=== PATIENT | male | born 1940 | race Caucasian/White ===

== ENCOUNTER 2020-07-01 14:53 | Outpatient (CLI) | payer MEDICARE ==
[2020-07-01 16:09] LABS: Hemoglobin 14.9 g/dL (14.0-18.0); Mean Corpuscular HGB CONC 33.6 G/DL (32.0-36.0); Mean Corpuscular Hemoglobin 32.3 PG (27.0-33.0); Mean Corpuscular Volume 96.1 fl (80.0-100.0); Mean Platelet Volume 8.2 fl (7.4-10.4); Platelet Count 714 10x3/uL (130-400); RBC Distribution Width 12.3 % (11.5-14.5); Red Blood Cell (RBC) Count 4.61 10x6/uL (4.40-5.80); White Blood Cell (WBC) Count 7.1 10x3/uL (4.5-11.0)
[2020-07-01 16:12] LABS: Anion Gap 14 mmol/L (10-20); BUN (Urea Nitrogen) 14 mg/dL (8.4-25.7); Calc. Creatinine Clearance 0 mL/min (70-130); Calcium 9.6 mg/dL (7.8-10.44); Carbon Dioxide 27 mmol/L (23-31); Chloride 102 mmol/L (98-107); Estimated GFR-MDRD 75; Glucose 112 mg/dL (83-110); Sodium 139 mmol/L (136-145)
[2020-07-01 16:22] LABS: PTT 25.1 sec (22.0-33.0); Prothrombin Time 10.7 sec (9.5-12.1)
[2020-07-01 16:29] LABS: Bilirubin Neg (Negative); Blood, Urine 250 (Negative); Glucose, Urine (Dipstick) Normal (Negative); Ketone, Urine 5 mg/dL (Negative); Leukocyte 25 (Negative); Nitrite Negative (Negative); Protein, Urine (Dipstick) 30 mg/dl (Neg-Trace); Specific Gravity, Urine 1.015 (1.002-1.036); Urobilinogen Normal mg/dL (Less than 2)
[2020-07-01 16:37] LABS: RBC/HPF Greater than 50 HPF (0-3)
[2020-07-01 16:38] LABS: Bacteria/HPF Rare-Few HPF (None Seen); Squamous Epithelial 0-3 HPF (0-3)
[2020-07-01 16:39] LABS: Mucous/LPF Rare LPF (<2+)
[2020-07-02 09:33] LABS: SARS-CoV-2 MS2 Positive; SARS-CoV-2 N Gene Negative; SARS-CoV-2 S Gene Negative; SARS-CoV-2 by NAA Not Detected (NotDetected); SARS-CoV-2 orf1ab Negative
== END 2020-07-01 14:54 | disposition home or self-care (01) ==
LOC: LABBT 14:53
PROVIDERS: ATTEND Urology
DX: Z01.818 Encounter for other preprocedural examination (principal); Z20.828 Contact with and (suspected) exposure to other viral communicable diseases; C68.9 Malignant neoplasm of urinary organ, unspecified; N40.1 Benign prostatic hyperplasia with lower urinary tract symptoms; R39.12 Poor urinary stream; R39.15 Urgency of urination; R68.89 Other general symptoms and signs
CPT/HCPCS: 80048; 81001; 85027; 85610; 85730; 87086; U0003; 87635; 93005; 93010

== ENCOUNTER 2020-07-03 11:58 | Observation (INO) | payer MEDICARE ==
[2020-07-03] MEDS ORDERED: Ondansetron PF 4 MG/2 ML Vial ONE (12:47)
[2020-07-03] MEDS ORDERED: Lidocaine 1% PF 5 ML VIAL ONE (12:47)
[2020-07-03] MEDS ORDERED: PROPOFOL 200 MG/20 ML VIAL ONE (12:47)
[2020-07-03] MEDS ORDERED: Dexamethasone 20 MG/5 ML VIAL ONE (12:47)
[2020-07-03] MEDS ORDERED: Levofloxacin 500 mg/D5W 100 ml Premix Bag ONE (14:00)
[2020-07-03] MEDS ORDERED: Fentanyl 100 MCG/2 ML VIAL ONE ×3 (14:42→17:35)
[2020-07-03] MEDS ORDERED: mitoMYcin 40 MG in Sterile Water 20 ML IV SCH (15:00)
[2020-07-03] MEDS ORDERED: B & O ONE (15:19)
[2020-07-03] MEDS ORDERED: Promethazine HCl 25 MG/ML VIAL IM PRN (16:00)
[2020-07-03] MEDS ORDERED: Ondansetron HCl/PF 4 MG/2 ML Vial IVP PRN (16:00)
[2020-07-03] MEDS ORDERED: Promethazine HCl 25 MG/ML VIAL SLOW IVP PRN (16:00)
[2020-07-03] MEDS ORDERED: Morphine 2 MG/ML VIAL SLOW IVP PRN (16:41)
[2020-07-03] MEDS ORDERED: Bisacodyl 10 MG SUPP PR PRN (16:41)
[2020-07-03] MEDS ORDERED: Phenazopyridine HCl 97.5 MG TABLET PO PRN (16:41)
[2020-07-03] MEDS ORDERED: hydrALAZINE 20 MG/ML VIAL SLOW IVP PRN (16:41)
[2020-07-03] MEDS ORDERED: Ondansetron PF 4 MG/2 ML Vial IVP PRN (16:41)
[2020-07-03] MEDS ORDERED: diphenhydrAMINE 25 MG CAP PO PRN (16:41)
[2020-07-03] MEDS ORDERED: Mag-Al 1200 mg/1200 mg/30 ML UDCUP PO PRN (16:41)
[2020-07-03] MEDS ORDERED: Acetaminophen 500 MG TAB PO PRN (16:41)
[2020-07-03] MEDS: traMADol HCl 50 MG TAB PO PRN (18:55)
--- NOTE | 2020-07-03 19:32 | OP ---
DATE OF PROCEDURE: 07/03/2020 SERVICE: Urology. PREOPERATIVE DIAGNOSES: 1. Bladder outlet obstruction with bladder tumor. 2. 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 POSTOPERATIVE DIAGNOSES: 1. Bladder tumor with bladder outlet obstruction. 2. Prostatic urethral tumor. PROCEDURES PERFORMED: 1. Transurethral resection of bladder tumor between 2 to 5 cm. 2. Transurethral resection of the prostate. 3. Instillation of mitomycin-C intravesically. INDICATIONS FOR PROCEDURE: Mr. Garcia is a 80-year-old white male who initially presented to me for significant urinary complaints. He had no history of hematuria and his prostate was extremely irregular. His PSA was normal, but on cystoscopy, he was found to have a bladder tumor as well as what looked like papillary tumor within the prostatic urethra. I recommended a TURP as well as resection of the bladder tumors with risks and benefits discussed with postoperative mitomycin-C. He agreed to proceed forward. DESCRIPTION OF PROCEDURE: After identification of armband and verification of consent, the patient was brought back to the operating room where he underwent general anesthesia with an LMA. He was placed in dorsal lithotomy position and prepped and draped in usual sterile fashion. After appropriate time-out, a 26-Wallisian resectoscope sheath with visual obturator was attempted to pass through the urethra. The meatus was somewhat narrow, so this was dilated with Khris sounds up to 28-Wallisian. This allowed for easier passage through the meatus using the resectoscope with visual obturator. Passage was done into the bladder and the bladder and prostatic urethra were consistent with what had been identified on outpatient cystoscopy. Of note, there were additional tumors noted within the bladder, which were missed on the outpatient cystoscopy. There was a tumor just posterior to the center of the trigone as well as a secondary smaller tumor just cephalad to the left ureteral orifice. The visual obturator was then switched out for the bipolar bladder loop with the bipolar plasma settings using the cutting current. The tumor on the center behind the trigone was resected initially and then cauterized. The tumor behind the left ureteral orifice was also resected and cauterized, taking care not to injure the left ureteral orifice. The largest tumor measuring approximately 3 cm was resected off the right side near the bladder neck until it was flushed with the remaining bladder. Some deeper swipes were taken into the detrusor muscle to ensure for adequate pathology and staging. At this point, cautery was performed in all locations and then the bladder tumor chips were evacuated and sent separately for pathologic evaluation. Attention was then turned to the prostate where transurethral resection of prostate was carried out from the bladder neck to the verumontanum circumferentially to create a wide-open passage. Bladder neck relaxing incisions were done at 5 and 7 o'clock to make the prostatic channel wider. Resection was carried up to the verumontanum and gentle resection was performed just lateral to the verumontanum on either side to remove the papillary frondular tumor, which was located in this location. Great care was taken to try and avoid urethral sphincteric injury. Cautery was then performed circumferentially until all bleeding spots had been stopped. The prostate did appear irregular on resection. Upon completion, the prostatic chips were evacuated with a combination of the Hydrobee evacuator as well as the resectoscope sheath. Final inspection of the bladder did not demonstrate any bleeding from the resection sites and both ureters were in the orthotopic location unharmed. The resectoscope was then completely removed and a 22-Wallisian 3-way Palm catheter was placed into the patient's bladder. The CBI tubing was connected, but once the bladder was drained, the CBI was kept off. 40 mg of mitomycin-C and 20 mL of water were instilled retrograde through the catheter into the bladder and a catheter plug placed. This was used to treat the patient's bladder cancer. The patient had B and O suppository placed, was then taken out of positioning, awakened, taken to PACU for recovery in stable condition. COMPLICATIONS: None. ESTIMATED BLOOD LOSS: Minimal. RETAINED TUBES AND DRAINS: 22-Wallisian 3-way Palm catheter, currently off CBI and plugged once his mitomycin-C has been in for 1 hour. We will drain the chemotherapy out, initiate CBI and keep his catheter to gravity drainage. SPECIMENS: Bladder tumor as well as prostatic tumor chips, sent separately. DISPOSITION: The patient will be kept in the hospital overnight. We will plan a discharge in the morning pending a void trial. Job ID: [id number]
[2020-07-03] MEDS: Docusate 100 MG CAP PO SCH (21:19)
[2020-07-03] MEDS: Trospium 20 MG TAB PO SCH (21:20)
[2020-07-04 00:29] VITALS: BMI 23.8
[2020-07-04 06:47] LABS: #Lymphocytes 0.9 thou/uL (1.20-3.40); #Monocytes 1.5 thou/uL (0.11-0.59); #Neutrophils 11.2 thou/uL (1.40-6.50); %Basophils 0.3 % (0.0-1.0); %Eosinophils 0.1 % (0.0-10.0); %Lymphocytes 6.7 % (21.0-51.0); Hemoglobin 13.5 g/dL (14.0-18.0); Mean Corpuscular HGB CONC 33.4 g/dL (32.0-36.0); Mean Corpuscular Hemoglobin 32.9 pg (27.0-31.0); Mean Corpuscular Volume 98.6 fL (78.0-98.0); Mean Platelet Volume 5.6 fL (7.4-10.4); Platelet Count 688 thou/uL (130-400); RBC Distribution Width 11.5 % (11.5-14.5); Red Blood Cell (RBC) Count 4.12 mill/uL (4.70-6.10); White Blood Cell (WBC) Count 13.7 thou/uL (4.8-10.8)
[2020-07-04 07:08] LABS: Anion Gap 12 mmol/L (10-20); BUN (Urea Nitrogen) 11 mg/dL (8.4-25.7); Calc. Creatinine Clearance 60 mL/min (70-130); Calcium 8.5 mg/dL (7.8-10.44); Carbon Dioxide 25 mmol/L (23-31); Chloride 102 mmol/L (98-107); Estimated GFR-MDRD 71; Glucose 119 mg/dL (83-110); Potassium 3.7 mmol/L (3.5-5.1); Sodium 135 mmol/L (136-145)
[2020-07-04] MEDS: Amlodipine 10 MG TAB PO SCH (09:11)
[2020-07-04] MEDS: Docusate 100 MG CAP PO SCH ×3 (09:11→20:20)
--- NOTE | 2020-07-04 10:34 | CT ---
CT chest with IV contrast CT abdomen and pelvis with IV and oral contrast HISTORY: Urinary bladder cancer. Initial staging. FINDINGS: Calcified granulomata throughout the chest and abdomen are consistent with healed granuloma tous disease. There is calcification throughout the arterial structures. At least 6 lobular low-density masses are present throughout the liver, measuring up to 2.2 cm the ce ntral aspect of the left liver lobe. A 1.7 cm cyst is present at the anterior cortex of the right kidney. At the anterior aspect of the dominguez perior pole left kidney is a 1.3 cm oval cystic lesion with a small hyperdense focus at the periphery. Mild dilatation of the left renal collecting system and moderate dilatation of the tortuou s left ureter to the distal ureter which is slightly hyperdense. Urinary bladder is decompressed with circumferential wall thickening and mild stranding in the adjacent fat. A 0.8 cm lipoma is noted within the second portion of the duodenum. There is subtle fat stranding within the left lower posterior retroperitoneum. Oval heterogeneous sof t tissue density masses with the appearance of enlarged lymph nodes in the left pelvis include internal iliac lymph nodes that are 3.3 and 2.7 cm greatest diameter and an oval external iliac chain node that is 5.3 cm x 3.1 cm greatest diameters. 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 Abnormal appearance of the bladder likely represents the historically stated bladder cancer. There is partial obstruction of the distal left ureter at the left UVJ. Mild to moderate left hydroureteronephrosis. Possible involvement of the lower left ureter given the hyperdense appearance. Complex cystic lesion at the superior pole left kidney 1.3 cm. Please consider short-term follow-up d edicated CT kidneys, without and with IV contrast, for better characterization. Atherosclerosis.
--- NOTE | 2020-07-04 11:02 | PRG ---
DATE OF SERVICE: 07/04/2020 SUBJECTIVE: The patient states he is doing okay. He has had some bladder spasms and mild irritation, but no severe pain. No fevers, chills, shortness of breath, or chest pain. OBJECTIVE: VITAL SIGNS: Temperature 97.7, pulse 78, respirations 16, blood pressure 172/78, and saturation 92% on room air. GENERAL: No apparent distress. Communicative and alert. CARDIOVASCULAR: Regular rate and rhythm. ABDOMEN: Soft, nontender, and nondistended. Positive bowel sounds. : Palm catheter in place with blood-tinged urine. EXTREMITIES: No edema. LABORATORY EVALUATION: The full set of labs are in the [employer] system, which I have reviewed. Of note, the patient's white count is 13.7 and hemoglobin 13.5. Creatinine of 1.02. 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 His urine looks clear enough that I think we can take out his catheter. We will perform a void trial and ensure that he is able to void and his urine is not excessively bloody. He is planned to get his imaging today with a CT of the chest, abdomen, and pelvis for staging for metastatic disease as well as a bone scan. Once these are completed, if he is able to void adequately without significant hematuria problems, I think he can be discharged home with followup on an outpatient basis. I have gone over all the patient's discharge instructions as well as postoperative instructions. Job ID: [id number]
[2020-07-04] MEDS: Trospium 20 MG TAB PO SCH ×2 (11:23→20:20)
--- NOTE | 2020-07-04 13:20 | DIS ---
DATE OF ADMISSION: 07/03/2020 DATE OF DISCHARGE: 07/05/2020 ADMITTING DIAGNOSIS: Bladder outlet obstruction with urothelial carcinoma. DISCHARGE DIAGNOSIS: Bladder outlet obstruction with urothelial carcinoma. PROCEDURE PERFORMED: Transurethral resection of bladder tumor with transurethral resection of the prostate and instillation of mitomycin-C postoperatively. BRIEF HISTORY: Mr. Garcia is a 80-year-old white male with severe urinary symptoms. He has a significantly abnormal JAMIE with normal PSA of 3. We had elected to perform a TURP, but during cysto was noted to have multiple bladder tumors as well as what looked like cancer within the prostatic urethra. I recommend resection of these areas including the prostate to help with urinary symptoms and staging. He did wish to proceed forward and the full H and P can be found in the scanned portion of the [employer]. HOSPITAL COURSE: After surgery (please see operative note for details), the patient was kept in the hospital overnight with CBI. He had imaging order for a CT of the chest, abdomen, and pelvis with contrast as well as a bone scan. These demonstrated that he had a hepatic metastasis with pelvic lymphadenopathy. He also was noted to have right hydronephrosis with mild left hydronephrosis. It is unclear how long he has had this. His catheter was removed postop day 1. He did have CBI overnight, but this was stopped in the morning and his urine was not very bloody. The patient was not able to void and after 6 hours we had to have his catheter replaced. We kept him another night until postoperative day 2. We obtained a new BMP due to the discovery of his hydronephrosis which showed that his GFR was even better at 86. He was discharged home with a Palm catheter since he didn't want to do another void trial right now and his followup will be handled on outpatient basis. DISPOSITION: Discharge to home. DISCHARGE CONDITION: Good. DISCHARGE MEDICATIONS: The patient may resume all of his home medications. In addition, he will be given prescriptions for trospium, tramadol, Pyridium, and Colace. FOLLOW UP: Will be in approximately 1 to 2 weeks for a postop check with a BMP and renal ultrasound and next week for void trial as a nurse visit in office. Job ID: [id number] [facility]
--- NOTE | 2020-07-04 13:28 | NM ---
Radionucleotide bone scan HISTORY: Transitional cell carcinoma of the bladder. FINDINGS: Heterogeneous uptake at the knees and shoulders consistent with degenerative changes. Linea r uptake over the right forearm correlates with IV tubing. Patient was unable to empty bladder. Persistent bladder uptake obscures the sacrum. Uptake is present within a dilated right renal collecting system and tortuous right ureter. IMPRESSION : No evidence of metastatic disease. Right hydroureteronephrosis.
[2020-07-04] MEDS ORDERED: Iopamidol-370 76% 500 ML 1 ML ONE (15:31)
[2020-07-04] MEDS: traMADol HCl 50 MG TAB PO PRN (18:24)
[2020-07-05] MEDS: traMADol HCl 50 MG TAB PO PRN (00:17)
[2020-07-05] MEDS: Trospium 20 MG TAB PO SCH (09:44)
[2020-07-05] MEDS: Docusate 100 MG CAP PO SCH (09:44)
[2020-07-05] MEDS: Amlodipine 10 MG TAB PO SCH (09:44)
[2020-07-05 13:46] LABS: Anion Gap 11 mmol/L (10-20); BUN (Urea Nitrogen) 12 mg/dL (8.4-25.7); Calc. Creatinine Clearance 71 mL/min (70-130); Calcium 9.1 mg/dL (7.8-10.44); Carbon Dioxide 29 mmol/L (23-31); Chloride 99 mmol/L (98-107); Estimated GFR-MDRD 86; Glucose 84 mg/dL (83-110); Potassium 4.2 mmol/L (3.5-5.1); Sodium 135 mmol/L (136-145)
--- NOTE | 2020-07-05 14:16 | PRG ---
DATE OF SERVICE: 07/05/2020 SUBJECTIVE: The patient failed his void trial yesterday. He was not able to urinate. The catheter was replaced with approximately 400 mL of clear yellow urine released. He is complaining of a little bit of flank discomfort and lower abdominal pain, more so on the right. He underwent his imaging yesterday, which demonstrated right-sided moderate hydronephrosis and left mild hydronephrosis. The bone scan was negative, but the CT did demonstrate possible metastatic disease within the liver and lymph nodes. Pathology is still pending on this patient. He is not complaining of any significant bladder spasms or bladder pain at the current time and feels relatively good otherwise. OBJECTIVE: VITAL SIGNS: Temperature 98.3, pulse 63, respirations 18, blood pressure 154/80, saturation 91% on room air. GENERAL: No apparent distress. Communicative and alert. CARDIOVASCULAR: Regular rate and rhythm. ABDOMEN: Soft, nontender, and nondistended. GENITOURINARY: Palm catheter in place, draining slightly orange-colored urine. EXTREMITIES: Trace edema. LABORATORY EVALUATION: The full set of labs are in the [facility] system, which I have reviewed. Of note, the patient's creatinine is 0.86, which is improved from yesterday. ASSESSMENT AND PLAN: A 80-year-old white male with uncharacterized malignancy within the bladder and prostate. It is unclear if this is a separate urothelial carcinoma with prostate adenocarcinoma, all prostate adenocarcinoma or all urothelial carcinoma, but it does appear that he has metastatic disease with pelvic lymphadenopathy and hepatic metastases. He also has hydronephrosis, which is unclear on the timeline of how long this has lasted. Both his ureters were identified in the correct location and unharmed at the end of his transurethral resection of the prostate yesterday. I do not feel that he has had any kind of ureteral injury from his surgery. That said, I do not feel the patient currently needs a stent as his GFR is 86. I would recommend that we recheck his creatinine and GFR prior to his followup appointment as well as another renal ultrasound. If he has failure to improve his hydronephrosis or has deterioration of his renal function, we can always bring the patient back for ureteral stent placement, specifically on the right side, which has the worst hydronephrosis. Otherwise, I do feel the patient can probably be discharged today. We discussed another void trial, but he states he would rather just keep the catheter in as he does not want to risk having the catheter removed and having it be replaced afterwards. As such, I will clear the patient for discharge with followup next week for a void trial with the CHAIR INSTALLER in our office and then a subsequent followup with me with a renal ultrasound and BMP done prior. Job ID: [id number]
[2020-07-05 15:56] VITALS: BP 118/73; TEMP 98.5
== END 2020-07-05 16:13 | disposition home or self-care (01) ==
LOC: SDC 11:58 → SJJU 16:32
PROVIDERS: ADMIT Urology; ATTEND Urology
PROC: 0VT08ZZ Resection of Prostate, Via Natural or Artificial Opening Endoscopic (ICD-10-PCS; principal; 2020-07-03)
PROC: 0T5B8ZZ Destruction of Bladder, Via Natural or Artificial Opening Endoscopic (ICD-10-PCS; 2020-07-03)
DX: C61 Malignant neoplasm of prostate (principal); C67.9 Malignant neoplasm of bladder, unspecified; N32.0 Bladder-neck obstruction; N40.1 Benign prostatic hyperplasia with lower urinary tract symptoms; R39.12 Poor urinary stream; R39.15 Urgency of urination; R35.1 Nocturia; N13.30 Unspecified hydronephrosis; I10 Essential (primary) hypertension; E78.00 Pure hypercholesterolemia, unspecified; Z79.899 Other long term (current) drug therapy; Z88.7 Allergy status to serum and vaccine; Z88.8 Allergy status to other drugs, medicaments and biological substances
CPT/HCPCS: 51701; 52235; 52601; 71260; 74177; 78306; 80048 ×2; 85025; 96374; A9503; G0378 ×2; J9280; 36415; 51798; 88305; 88307; 88341; 88342; J1100; J1956; J2405; J2704; J3010; Q9967

== ENCOUNTER 2020-12-28 14:19 | Outpatient (CLI) | payer MEDICARE ==
[2020-12-28 17:41] LABS: Hemoglobin 13.3 g/dL (13.5-17.5); Mean Corpuscular HGB CONC 32.1 g/dL (32.0-36.0); Mean Corpuscular Hemoglobin 31.6 pg (27.0-33.0); Mean Corpuscular Volume 98.3 fl (81.2-95.1); Mean Platelet Volume 8.4 fl (7.4-10.4); Platelet Count 653 10x3/uL (150-450); RBC Distribution Width 12.1 % (11.5-14.5); Red Blood Cell (RBC) Count 4.21 10x6/uL (4.32-5.72); White Blood Cell (WBC) Count 8.1 10x3/uL (3.5-10.5)
[2020-12-28 17:48] LABS: Anion Gap 14 mmol/L (10-20); BUN (Urea Nitrogen) 14 mg/dL (8.4-25.7); Calc. Creatinine Clearance 0 mL/min (70-130); Calcium 9.3 mg/dL (7.8-10.44); Carbon Dioxide 25 mmol/L (23-31); Chloride 103 mmol/L (98-107); Glucose 75 mg/dL (83-110); Potassium 4.8 mmol/L (3.5-5.1); Sodium 137 mmol/L (136-145)
[2020-12-28 17:49] LABS: PTT 24.8 sec (22.0-33.0); Prothrombin Time 10.9 sec (9.5-12.1)
[2020-12-29 02:11] LABS: SARS-CoV-2 PCR by NAA Not Detected (NotDetected)
== END 2020-12-28 14:20 | disposition home or self-care (01) ==
LOC: LABBT 14:19
PROVIDERS: ATTEND Obstetrics & Gynecology
DX: Z01.812 Encounter for preprocedural laboratory examination (principal); C77.5 Secondary and unspecified malignant neoplasm of intrapelvic lymph nodes; C61 Malignant neoplasm of prostate; N39.46 Mixed incontinence; G25.81 Restless legs syndrome; F19.982 Other psychoactive substance use, unspecified with psychoactive substance-induced sleep disorder; N40.1 Benign prostatic hyperplasia with lower urinary tract symptoms; N13.39 Other hydronephrosis; N28.89 Other specified disorders of kidney and ureter; Z20.822 Contact with and (suspected) exposure to COVID-19
CPT/HCPCS: 80048; 81001; 85027; 85610; 85730; 87086; 87635; U0003; U0005

== ENCOUNTER 2020-12-28 14:30 | Inpatient (IN) | payer MEDICARE ==
[2020-12-29 15:28] VITALS: BMI 24.0
[2020-12-31] MEDS ORDERED: Lidocaine 1% w/Epinephrine 1:100K 20 ML VIAL ONE (09:33)
[2020-12-31] MEDS ORDERED: Bupivacaine 0.25% HCL 30 ML VIAL ONE (09:33)
[2020-12-31] MEDS ORDERED: Fentanyl 100 MCG/2 ML VIAL ONE ×2 (10:24→14:23)
[2020-12-31] MEDS ORDERED: Rocuronium Bromide 10 MG/ML (10ML VIAL) ONE (10:42)
[2020-12-31] MEDS ORDERED: PROPOFOL 200 MG/20 ML VIAL ONE (10:42)
[2020-12-31] MEDS ORDERED: Dexamethasone 20 MG/5 ML VIAL ONE (10:42)
[2020-12-31] MEDS ORDERED: ePHEDrine Sulfate 50 MG/10 ML VIAL ONE (10:42)
[2020-12-31] MEDS ORDERED: Lidocaine 1% PF 5 ML VIAL ONE (10:42)
[2020-12-31] MEDS ORDERED: Ondansetron PF 4 MG/2 ML Vial ONE (10:42)
[2020-12-31] MEDS ORDERED: SUGAMMADEX SODIUM 500 MG/5 ML VIAL ONE (13:09)
[2020-12-31] MEDS ORDERED: Promethazine HCl 25 MG/ML VIAL IM PRN (13:34)
[2020-12-31] MEDS ORDERED: Ondansetron HCl/PF 4 MG/2 ML Vial IVP PRN (13:34)
[2020-12-31] MEDS ORDERED: Promethazine HCl 25 MG/ML VIAL SLOW IVP PRN (13:34)
[2020-12-31] MEDS ORDERED: diphenhydrAMINE 25 MG CAP PO PRN (16:14)
[2020-12-31] MEDS ORDERED: Sodium Chloride 0.9% 1,000 ML IV SCH (16:14)
[2020-12-31] MEDS ORDERED: Morphine 4 MG/ML VIAL SLOW IVP PRN ×2 (16:14→16:56)
[2020-12-31] MEDS ORDERED: traMADol HCl 50 MG TAB PO PRN (16:14)
[2020-12-31] MEDS ORDERED: Ondansetron PF 4 MG/2 ML Vial IVP PRN (16:14)
[2020-12-31] MEDS ORDERED: Acetaminophen 500 MG TAB PO PRN (16:14)
[2020-12-31] MEDS ORDERED: Bisacodyl 10 MG SUPP PR PRN (16:14)
[2020-12-31] MEDS ORDERED: HYDROcodone/Acetaminophen 5/325 mg Tablet PO PRN (16:14)
[2020-12-31] MEDS ORDERED: hydrALAZINE 20 MG/ML VIAL SLOW IVP PRN (16:14)
[2020-12-31] MEDS ORDERED: Mag-Al 1200 mg/1200 mg/30 ML UDCUP PO PRN (16:14)
[2020-12-31 16:36] LABS: Mean Corpuscular HGB CONC 32.5 g/dL (32.0-36.0); Mean Corpuscular Hemoglobin 32.1 pg (27.0-31.0); Mean Corpuscular Volume 98.9 fL (78.0-98.0); Mean Platelet Volume 5.6 fL (7.4-10.4); Platelet Count 630 thou/uL (130-400); RBC Distribution Width 11.4 % (11.5-14.5); Red Blood Cell (RBC) Count 4.03 mill/uL (4.70-6.10); White Blood Cell (WBC) Count 23.4 thou/uL (4.8-10.8)
[2020-12-31 16:51] LABS: Anion Gap 11 mmol/L (10-20); BUN (Urea Nitrogen) 16 mg/dL (8.4-25.7); Calc. Creatinine Clearance 83 mL/min (70-130); Calcium 9.8 mg/dL (7.8-10.44); Carbon Dioxide 26 mmol/L (23-31); Chloride 104 mmol/L (98-107); Glucose 153 mg/dL (83-110); Potassium 4.1 mmol/L (3.5-5.1); Sodium 137 mmol/L (136-145)
[2020-12-31] MEDS: HYDROcodone/Acetaminophen 5/325 mg Tablet PO PRN ×2 (17:06→20:49)
[2020-12-31] MEDS: ceFAZolin 1 GM/D5W 1 GM in Premix Bag 1 BAG IVPB SCH (20:33)
[2020-12-31] MEDS: Docusate 100 MG CAP PO SCH (20:47)
[2020-12-31] MEDS: Famotidine/PF 20 mg/2ml Vial SLOW IVP SCH (20:47)
[2020-12-31] MEDS: Melatonin 3 MG TAB PO SCH (20:47)
[2020-12-31] MEDS: rOPINIRole HCl 2 MG TAB PO SCH (20:48)
[2020-12-31] MEDS: Trospium 20 MG TAB PO SCH (20:48)
[2021-01-01] MEDS: HYDROcodone/Acetaminophen 5/325 mg Tablet PO PRN ×4 (01:06→18:04)
[2021-01-01] MEDS: ceFAZolin 1 GM/D5W 1 GM in Premix Bag 1 BAG IVPB SCH ×2 (02:26→11:29)
[2021-01-01 05:50] LABS: #Monocytes 1.7 thou/uL (0.11-0.59); #Neutrophils 12.7 thou/uL (1.40-6.50); %Basophils 0.2 % (0.0-1.0); %Eosinophils 0.2 % (0.0-10.0); %Lymphocytes 6.2 % (21.0-51.0); %Monocytes 11.1 % (0.0-10.0); %Neutrophils 82.2 % (42.0-75.0); Hemoglobin 11.9 g/dL (14.0-18.0); Mean Corpuscular HGB CONC 31.5 g/dL (32.0-36.0); Mean Corpuscular Hemoglobin 31.4 pg (27.0-31.0); Mean Corpuscular Volume 99.5 fL (78.0-98.0); Mean Platelet Volume 5.7 fL (7.4-10.4); Platelet Count 595 thou/uL (130-400); RBC Distribution Width 11.3 % (11.5-14.5); Red Blood Cell (RBC) Count 3.78 mill/uL (4.70-6.10); White Blood Cell (WBC) Count 15.4 thou/uL (4.8-10.8)
[2021-01-01 06:15] LABS: Anion Gap 10 mmol/L (10-20); BUN (Urea Nitrogen) 13 mg/dL (8.4-25.7); Calc. Creatinine Clearance 70 mL/min (70-130); Calcium 9.4 mg/dL (7.8-10.44); Carbon Dioxide 27 mmol/L (23-31); Chloride 100 mmol/L (98-107); Glucose 122 mg/dL (83-110); Potassium 4.2 mmol/L (3.5-5.1); Sodium 133 mmol/L (136-145)
[2021-01-01] MEDS: Amlodipine 10 MG TAB PO SCH (08:15)
[2021-01-01] MEDS: Polyethylene Glycol 3350 17 GM Packet PO SCH (08:15)
[2021-01-01] MEDS: Docusate 100 MG CAP PO SCH ×2 (08:15→20:18)
[2021-01-01] MEDS: Famotidine/PF 20 mg/2ml Vial SLOW IVP SCH ×2 (08:15→20:19)
[2021-01-01] MEDS: Trospium 20 MG TAB PO SCH ×2 (08:19→20:11)
[2021-01-01] MEDS: rOPINIRole HCl 2 MG TAB PO SCH (20:11)
[2021-01-01] MEDS: Melatonin 3 MG TAB PO SCH (20:12)
[2021-01-02] MEDS: HYDROcodone/Acetaminophen 5/325 mg Tablet PO PRN (04:24)
[2021-01-02 06:09] LABS: Hemoglobin 11.4 g/dL (14.0-18.0); Mean Corpuscular HGB CONC 33.1 g/dL (32.0-36.0); Mean Corpuscular Hemoglobin 32.5 pg (27.0-31.0); Mean Corpuscular Volume 98.3 fL (78.0-98.0); Mean Platelet Volume 5.8 fL (7.4-10.4); Platelet Count 554 thou/uL (130-400); RBC Distribution Width 11.4 % (11.5-14.5); Red Blood Cell (RBC) Count 3.52 mill/uL (4.70-6.10); White Blood Cell (WBC) Count 13.1 thou/uL (4.8-10.8)
[2021-01-02] MEDS: Polyethylene Glycol 3350 17 GM Packet PO SCH (06:41)
[2021-01-02] MEDS: Docusate 100 MG CAP PO SCH (06:41)
[2021-01-02 08:11] VITALS: TEMP 98.2
[2021-01-02] MEDS: Trospium 20 MG TAB PO SCH (09:42)
[2021-01-02] MEDS: Famotidine/PF 20 mg/2ml Vial SLOW IVP SCH (09:42)
[2021-01-02] MEDS: Amlodipine 10 MG TAB PO SCH (09:43)
[2021-01-02 11:29] VITALS: BP 145/77
== END 2021-01-02 13:20 | disposition home or self-care (01) | DRG 658 ==
LOC: SURG A 12-31 07:24 → EDSTATUS 12-31 14:30 → SURG A 12-31 16:04
PROVIDERS: ADMIT Urology; ATTEND Urology
PROC: 0T5 Urinary System, Destruction (ICD-10-PCS; principal; 2020-12-31)
DX: C64.2 Malignant neoplasm of left kidney, except renal pelvis (principal); I10 Essential (primary) hypertension; E78.00 Pure hypercholesterolemia, unspecified; K59.00 Constipation, unspecified; Z98.49 Cataract extraction status, unspecified eye; Z87.891 Personal history of nicotine dependence; Z88.7 Allergy status to serum and vaccine; Z88.8 Allergy status to other drugs, medicaments and biological substances; Z85.59 Personal history of malignant neoplasm of other urinary tract organ
CPT/HCPCS: 36415; 71045; 80048; 81001; 85025; 85027; 85610; 85730; 87086; 87635; 88305; J0690; J1100; J2405; J2704; J3010; S0020; S0028; U0003; U0005

== ENCOUNTER 2021-05-21 09:46 | Outpatient (CLI) | payer MEDICARE ==
[2021-05-21] MEDS ORDERED: Iopamidol-370 76% 500 ML 1 ML ONE (12:00)
== END 2021-05-21 09:47 | disposition home or self-care (01) ==
LOC: BICCT 09:46
PROVIDERS: ATTEND Internal Medicine Hematology & Oncology
DX: C61 Malignant neoplasm of prostate (principal); C78.7 Secondary malignant neoplasm of liver and intrahepatic bile duct; R59.0 Localized enlarged lymph nodes; J98.11 Atelectasis; J84.10 Pulmonary fibrosis, unspecified; I70.0 Atherosclerosis of aorta; I70.90 Unspecified atherosclerosis; K76.9 Liver disease, unspecified; Z98.890 Other specified postprocedural states
CPT/HCPCS: 36415; 74177; 80053; 82248; 82565; 83615; 84100; 84153; 84550; Q9967

== ENCOUNTER 2021-09-21 10:13 | Outpatient (CLI) | payer MEDICARE | END 2021-09-21 10:14 | disposition home or self-care (01) | LOC: CT 10:13 | PROVIDERS: ATTEND Internal Medicine Hematology & Oncology | DX: C61 Malignant neoplasm of prostate (principal); C78.7 Secondary malignant neoplasm of liver and intrahepatic bile duct; R59.0 Localized enlarged lymph nodes; R91.8 Other nonspecific abnormal finding of lung field; Z98.890 Other specified postprocedural states | CPT/HCPCS: 71260; 74177; 78306; 82565; A9503; 36415; 80053 ==

== ENCOUNTER 2022-01-06 07:50 | Outpatient (CLI) | payer MEDICARE | END 2022-01-06 07:51 | disposition home or self-care (01) | LOC: BICCT 07:50 | PROVIDERS: ATTEND Internal Medicine Hematology & Oncology | DX: C61 Malignant neoplasm of prostate (principal); C64.9 Malignant neoplasm of unspecified kidney, except renal pelvis; C78.7 Secondary malignant neoplasm of liver and intrahepatic bile duct | CPT/HCPCS: 71260; 74177 ==

== ENCOUNTER 2022-03-29 08:34 | Outpatient (CLI) | payer MEDICARE ==
[2022-03-29] MEDS ORDERED: Iopamidol 370 76% 100 ML VIAL ONE (14:30)
== END 2022-03-29 08:35 | disposition home or self-care (01) ==
LOC: CT 08:34
PROVIDERS: ATTEND Internal Medicine Hematology & Oncology
DX: C61 Malignant neoplasm of prostate (principal); C78.00 Secondary malignant neoplasm of unspecified lung; C78.7 Secondary malignant neoplasm of liver and intrahepatic bile duct
CPT/HCPCS: 71260; 74177; 78306; 82565; A9503; Q9967

== ENCOUNTER 2022-07-15 08:53 | Outpatient (CLI) | payer MEDICARE ==
[2022-07-15] MEDS ORDERED: Iopamidol-370 76% 500 ML 1 ML ONE (10:16)
== END 2022-07-15 08:54 | disposition home or self-care (01) ==
LOC: BICCT 08:53
PROVIDERS: ATTEND Internal Medicine Hematology & Oncology
DX: C61 Malignant neoplasm of prostate (principal); C64.9 Malignant neoplasm of unspecified kidney, except renal pelvis; C78.7 Secondary malignant neoplasm of liver and intrahepatic bile duct; M47.896 Other spondylosis, lumbar region; I70.0 Atherosclerosis of aorta; N28.1 Cyst of kidney, acquired
CPT/HCPCS: 71260; 74177; 82565

== ENCOUNTER 2022-09-30 09:05 | Outpatient (CLI) | payer MEDICARE | END 2022-09-30 09:06 | disposition home or self-care (01) | LOC: TBSIIMAG 09:05 | PROVIDERS: ATTEND Anesthesiology | DX: M51.16 Intervertebral disc disorders with radiculopathy, lumbar region (principal); M51.06 Intervertebral disc disorders with myelopathy, lumbar region; M48.07 Spinal stenosis, lumbosacral region; M48.061 Spinal stenosis, lumbar region without neurogenic claudication; M48.05 Spinal stenosis, thoracolumbar region; S32.019A Unspecified fracture of first lumbar vertebra, initial encounter for closed fracture; E88.2 Lipomatosis, not elsewhere classified | CPT/HCPCS: 72146; 72148 ==

== ENCOUNTER 2022-10-13 11:02 | Outpatient (CLI) | payer MEDICARE | END 2022-10-13 11:03 | disposition home or self-care (01) | LOC: NM 11:02 | PROVIDERS: ATTEND Internal Medicine Hematology & Oncology | DX: C61 Malignant neoplasm of prostate (principal); C22.8 Malignant neoplasm of liver, primary, unspecified as to type; R91.8 Other nonspecific abnormal finding of lung field; R29.890 Loss of height; Z98.890 Other specified postprocedural states | CPT/HCPCS: 71260; 74177; 78306; 82565; A9503 ==

== ENCOUNTER 2022-11-14 10:31 | Outpatient (CLI) | payer MEDICARE | END 2022-11-14 10:32 | disposition home or self-care (01) | LOC: BICMAMMO 10:31 | PROVIDERS: ATTEND Internal Medicine Hematology & Oncology | DX: Z13.820 Encounter for screening for osteoporosis (principal); M81.0 Age-related osteoporosis without current pathological fracture; M85.88 Other specified disorders of bone density and structure, other site; Z79.818 Long term (current) use of other agents affecting estrogen receptors and estrogen levels | CPT/HCPCS: 77080 ==

== ENCOUNTER 2023-03-16 09:24 | Outpatient (CLI) | payer MEDICARE ==
[2023-03-16] MEDS ORDERED: Iopamidol 370 76% 100 ML VIAL ONE (13:52)
== END 2023-03-16 09:25 | disposition home or self-care (01) ==
LOC: BICCT 09:24
PROVIDERS: ATTEND Internal Medicine Hematology & Oncology
DX: C61 Malignant neoplasm of prostate (principal); R91.8 Other nonspecific abnormal finding of lung field; K76.9 Liver disease, unspecified; S22.051A Stable burst fracture of T5-T6 vertebra, initial encounter for closed fracture; S32.011A Stable burst fracture of first lumbar vertebra, initial encounter for closed fracture
CPT/HCPCS: 71260; 74177; Q9967

== ENCOUNTER 2023-04-07 09:10 | Outpatient (CLI) | payer MEDICARE | END 2023-04-07 09:11 | disposition home or self-care (01) | LOC: NM 09:10 | PROVIDERS: ATTEND Internal Medicine Hematology & Oncology | DX: C61 Malignant neoplasm of prostate (principal); M89.9 Disorder of bone, unspecified | CPT/HCPCS: 78306; A9503 ==

== ENCOUNTER 2023-07-28 10:30 | Outpatient (CLI) | payer MEDICARE | END 2023-07-28 10:31 | disposition home or self-care (01) | LOC: SCSRAD 10:30 | PROVIDERS: ATTEND Family Medicine | DX: B34.9 Viral infection, unspecified (principal); J98.11 Atelectasis | CPT/HCPCS: 71046 ==

== ENCOUNTER 2023-08-01 19:46 | Inpatient (IN) | payer MEDICARE ==
[2023-08-01] MEDS ORDERED: rOPINIRole HCl 2 MG TAB PO SCH (21:00)
[2023-08-01] MEDS ORDERED: Gabapentin 300 MG CAP PO SCH (21:00)
[2023-08-01] MEDS ORDERED: Calcium Carbonate 500 MG ChewTAB PO PRN (21:04)
[2023-08-01] MEDS ORDERED: Ondansetron ODT 4 MG TAB PO PRN (21:04)
[2023-08-01] MEDS ORDERED: Ipratropium/Albuterol 3 ML NEB NEB PRN (21:04)
[2023-08-01] MEDS ORDERED: QUEtiapine 25 MG TAB PO SCH (22:00)
[2023-08-01 22:33] VITALS: BMI 22.4
[2023-08-01] MEDS ORDERED: Guaifenesin DM 100-10/5 ML UDCUP PO PRN (22:57)
[2023-08-01] MEDS ORDERED: Cefepime 1 GM in Sodium Chloride 0.9% 100 ML IVPB SCH (23:00)
[2023-08-01] MEDS ORDERED: Doxycycline 100 MG CAP PO SCH (23:00)
[2023-08-02] MEDS ORDERED: methylPREDNISolone Sod Succ 40 MG VIAL IVP SCH ×2 (02:30→09:00)
[2023-08-02] MEDS: Ipratropium/Albuterol 3 ML NEB NEB SCH ×6 (02:59→22:34)
[2023-08-02 04:48] LABS: #Monocytes 0.8 thou/uL (0.11-0.59); #Neutrophils 7.5 thou/uL (1.40-6.50); %Basophils 0.1 % (0.0-1.0); %Lymphocytes 4.5 % (21.0-51.0); %Monocytes 8.9 % (0.0-10.0); %Neutrophils 85.4 % (42.0-75.0); Hematocrit 37.1 % (42.0-52.0); Mean Corpuscular HGB CONC 32.3 g/dL (32.0-36.0); Mean Corpuscular Hemoglobin 31.3 pg (27.0-31.0); Mean Corpuscular Volume 96.9 fl (78.0-98.0); Mean Platelet Volume 9.2 fL (7.4-10.4); Platelet Count 395 10x3/uL (130-400); RBC Distribution Width 13.5 % (11.5-14.5); Red Blood Cell (RBC) Count 3.83 mill/uL (4.70-6.10); White Blood Cell (WBC) Count 8.8 10x3/uL (4.8-10.8)
[2023-08-02] MEDS ORDERED: Ziprasidone 20 MG VIAL ONE (05:57)
[2023-08-02] MEDS ORDERED: Sterile Water 10 ML ONE (05:58)
[2023-08-02] MEDS ORDERED: Sterile Water 10 ML VIAL FS PRN (06:00)
[2023-08-02] MEDS ORDERED: Ziprasidone 20 MG VIAL IM SCH (06:00)
[2023-08-02] MEDS: Dexmedetomidine 400 MCG, Admixture Fee 1 EACH in Sodium Chloride 0.9% 96 ML IVPB SCH ×2 (06:34→20:03)
[2023-08-02] MEDS: Mometasone 100 MCG/Formoterol 5 MCG 120 PUFF INHALER INH SCH ×2 (07:24→18:48)
[2023-08-02 08:17] LABS: Anion Gap 10 mmol/L (10-20); BUN (Urea Nitrogen) 21 mg/dL (8.4-25.7); Calc. Creatinine Clearance 68 mL/min (70-130); Calcium 9.4 mg/dL (7.8-10.44); Carbon Dioxide 29 mmol/L (23-31); Chloride 103 mmol/L (98-107); Estimated GFR 88; Glucose 126 mg/dL (83-110); Potassium 4.1 mmol/L (3.5-5.1); Sodium 138 mmol/L (136-145)
[2023-08-02] MEDS: Enoxaparin 40 MG (0.4 mL) SYRINGE SC SCH ×2 (08:28→09:00)
[2023-08-02] MEDS: Docusate 100 MG CAP PO SCH ×2 (08:28→09:00)
[2023-08-02] MEDS: Amlodipine 10 MG TAB PO SCH ×2 (08:36→09:00)
[2023-08-02] MEDS: Doxycycline 100 MG CAP PO SCH ×2 (08:36→08:46)
[2023-08-02] MEDS: Famotidine 20 MG TAB PO SCH ×2 (08:37→09:00)
[2023-08-02] MEDS: rOPINIRole HCl 2 MG TAB PO SCH (08:38)
[2023-08-02] MEDS ORDERED: Ascorbic Acid 500 mg Chewable Tablet PO SCH (09:00)
[2023-08-02] MEDS ORDERED: Cefepime 1 GM in Sodium Chloride 0.9% 100 ML IVPB SCH (09:00)
[2023-08-02] MEDS ORDERED: Ergocalciferol 1.25 MG(50,000 UNITS) CAP PO SCH (09:00)
[2023-08-02] MEDS: Polyethylene Glycol 3350 17 GM Packet PO SCH (09:00)
[2023-08-02 09:07] LABS: Bacteria/HPF None Seen HPF (None Seen); Bilirubin Negative (Negative); Blood, Urine Negative (Negative); CAUTI Indications for Culture Alt mental st,lethar; Clarity Clear (Clear); Glucose, Urine (Dipstick) Normal (Negative); Ketone, Urine Negative (Negative); Leukocyte Negative Leu/uL (Negative); Nitrite Negative (Negative); Protein, Urine (Dipstick) Negative (Neg-Trace); RBC/HPF 0-3 HPF (0-3); Specific Gravity, Urine 1.006 (1.002-1.036); Squamous Epithelial None Seen HPF (0-3); Urobilinogen Normal mg/dL (Less than 2); WBC/HPF None Seen HPF (0-3); pH, Urine 6.5 (5.0-9.0)
[2023-08-02 09:10] LABS: Urine Culture Reflex No No
[2023-08-02] MEDS ORDERED: Iopamidol-370 76% 500 ML MDV (1 ML CHARGE) ONE (10:40)
[2023-08-02] MEDS ORDERED: Haloperidol Lactate 5 MG/ML VIAL SLOW IVP SCH (11:00)
[2023-08-02] MEDS: Sodium Chloride 0.45% 1,000 ML IV SCH ×2 (11:13→23:18)
[2023-08-02] MEDS: Haloperidol Lactate 5 MG/ML VIAL IM SCH ×3 (15:14→23:11)
[2023-08-02] MEDS ORDERED: QUEtiapine 25 MG TAB PO SCH (21:00)
[2023-08-02] MEDS ORDERED: traZODone HCl 50 MG TAB PO SCH (21:00)
[2023-08-02] MEDS: Famotidine/PF 20 mg/2ml Vial SLOW IVP SCH (21:09)
[2023-08-03] MEDS: Ipratropium/Albuterol 3 ML NEB NEB SCH ×6 (02:47→23:43)
[2023-08-03] MEDS: Haloperidol Lactate 5 MG/ML VIAL IM SCH ×5 (03:54→22:20)
[2023-08-03] MEDS: Mometasone 100 MCG/Formoterol 5 MCG 120 PUFF INHALER INH SCH ×2 (07:11→18:58)
[2023-08-03] MEDS: Enoxaparin 40 MG (0.4 mL) SYRINGE SC SCH (08:43)
[2023-08-03] MEDS: Docusate 100 MG CAP PO SCH (08:43)
[2023-08-03] MEDS: Famotidine/PF 20 mg/2ml Vial SLOW IVP SCH (08:44)
[2023-08-03] MEDS: Polyethylene Glycol 3350 17 GM Packet PO SCH (08:44)
[2023-08-03] MEDS: Amlodipine 10 MG TAB PO SCH (08:46)
[2023-08-03 10:29] LABS: #Neutrophils 6.3 thou/uL (1.40-6.50); %Basophils 0.1 % (0.0-1.0); %Eosinophils 0.1 % (0.0-10.0); %Lymphocytes 8.6 % (21.0-51.0); %Monocytes 11.8 % (0.0-10.0); %Neutrophils 78.4 % (42.0-75.0); Hematocrit 38.4 % (42.0-52.0); Hemoglobin 12.7 g/dL (14.0-18.0); Mean Corpuscular HGB CONC 33.1 g/dL (32.0-36.0); Mean Corpuscular Hemoglobin 31.6 pg (27.0-31.0); Mean Corpuscular Volume 95.5 fl (78.0-98.0); Mean Platelet Volume 8.4 fL (7.4-10.4); Platelet Count 337 10x3/uL (130-400); RBC Distribution Width 13.6 % (11.5-14.5); Red Blood Cell (RBC) Count 4.02 mill/uL (4.70-6.10)
[2023-08-03] MEDS ORDERED: rOPINIRole HCl 2 MG TAB PO SCH ×3 (10:45→21:00)
[2023-08-03] MEDS ORDERED: predniSONE 5 MG TAB PO SCH (10:45)
[2023-08-03 10:52] LABS: Anion Gap 9 mmol/L (10-20); BUN (Urea Nitrogen) 14 mg/dL (8.4-25.7); Calc. Creatinine Clearance 71 mL/min (70-130); Calcium 8.4 mg/dL (7.8-10.44); Carbon Dioxide 24 mmol/L (23-31); Chloride 105 mmol/L (98-107); Estimated GFR 90; Glucose 94 mg/dL (83-110); Potassium 3.4 mmol/L (3.5-5.1); Sodium 135 mmol/L (136-145)
[2023-08-03] MEDS ORDERED: methylPREDNISolone Sod Succ 40 MG VIAL IVP SCH (11:00)
[2023-08-03] MEDS ORDERED: Oxymetazoline HCl 0.05% (30 ML BOT) NS SCH (11:45)
[2023-08-03] MEDS: Sodium Chloride 0.45% 1,000 ML IV SCH (13:44)
[2023-08-03] MEDS ORDERED: Venlafaxine XR 37.5 MG CAP PO SCH (21:00)
[2023-08-03] MEDS: Oxymetazoline HCl 0.05% (30 ML BOT) NS SCH (21:34)
[2023-08-03] MEDS: QUEtiapine 25 MG TAB PO SCH (21:34)
[2023-08-03] MEDS: Famotidine 20 MG TAB PO SCH (21:34)
[2023-08-03] MEDS ORDERED: Haloperidol Lactate 5 MG/ML VIAL IM SCH (22:00)
[2023-08-04] MEDS: Ipratropium/Albuterol 3 ML NEB NEB SCH ×6 (02:16→22:10)
[2023-08-04] MEDS: Haloperidol Lactate 5 MG/ML VIAL IM SCH (04:36)
[2023-08-04] MEDS: Sodium Chloride 0.45% 1,000 ML IV SCH ×2 (04:36→15:37)
[2023-08-04] MEDS ORDERED: Haloperidol Lactate 5 MG/ML VIAL IM PRN (06:00)
[2023-08-04 06:29] LABS: #Monocytes 0.9 thou/uL (0.11-0.59); #Neutrophils 5.5 thou/uL (1.40-6.50); %Basophils 0.3 % (0.0-1.0); %Monocytes 11.7 % (0.0-10.0); %Neutrophils 74.6 % (42.0-75.0); Hematocrit 39.7 % (42.0-52.0); Hemoglobin 12.7 g/dL (14.0-18.0); Mean Corpuscular Hemoglobin 30.6 pg (27.0-31.0); Mean Corpuscular Volume 95.7 fl (78.0-98.0); Mean Platelet Volume 9.5 fL (7.4-10.4); Platelet Count 336 10x3/uL (130-400); RBC Distribution Width 13.6 % (11.5-14.5); Red Blood Cell (RBC) Count 4.15 mill/uL (4.70-6.10); White Blood Cell (WBC) Count 7.3 10x3/uL (4.8-10.8)
[2023-08-04 06:59] LABS: Anion Gap 11 mmol/L (10-20); BUN (Urea Nitrogen) 14 mg/dL (8.4-25.7); Calc. Creatinine Clearance 74 mL/min (70-130); Calcium 8.6 mg/dL (7.8-10.44); Carbon Dioxide 25 mmol/L (23-31); Chloride 106 mmol/L (98-107); Estimated GFR 91; Glucose 110 mg/dL (83-110); Potassium 3.4 mmol/L (3.5-5.1); Sodium 139 mmol/L (136-145)
[2023-08-04] MEDS: Mometasone 100 MCG/Formoterol 5 MCG 120 PUFF INHALER INH SCH ×2 (07:10→18:52)
[2023-08-04] MEDS ORDERED: predniSONE 5 MG TAB PO SCH (08:00)
[2023-08-04] MEDS: Enoxaparin 40 MG (0.4 mL) SYRINGE SC SCH (09:59)
[2023-08-04] MEDS: rOPINIRole HCl 2 MG TAB PO SCH ×2 (09:59→22:09)
[2023-08-04] MEDS: QUEtiapine 25 MG TAB PO SCH ×2 (10:00→22:10)
[2023-08-04] MEDS: Amlodipine 10 MG TAB PO SCH (10:00)
[2023-08-04] MEDS: Docusate 100 MG CAP PO SCH (10:00)
[2023-08-04] MEDS: Famotidine 20 MG TAB PO SCH ×2 (10:00→22:10)
[2023-08-04] MEDS: methylPREDNISolone Sod Succ 40 MG VIAL IVP SCH (10:00)
[2023-08-04] MEDS: Polyethylene Glycol 3350 17 GM Packet PO SCH (10:02)
[2023-08-04] MEDS: Oxymetazoline HCl 0.05% (30 ML BOT) NS SCH ×2 (13:23→22:22)
[2023-08-04] MEDS: Venlafaxine XR 37.5 MG CAP PO SCH (22:11)
[2023-08-04] MEDS: Fluticasone Propionate Nasal Spray 16 gm Bottle NASAL SCH (22:21)
[2023-08-05] MEDS: Ipratropium/Albuterol 3 ML NEB NEB SCH ×6 (02:30→22:46)
[2023-08-05] MEDS: Mometasone 100 MCG/Formoterol 5 MCG 120 PUFF INHALER INH SCH ×2 (06:34→18:55)
[2023-08-05 07:17] LABS: #Monocytes 0.9 thou/uL (0.11-0.59); %Basophils 0.2 % (0.0-1.0); %Eosinophils 0.3 % (0.0-10.0); %Lymphocytes 4.6 % (21.0-51.0); %Monocytes 7.5 % (0.0-10.0); %Neutrophils 86.4 % (42.0-75.0); Hematocrit 38.3 % (42.0-52.0); Hemoglobin 12.3 g/dL (14.0-18.0); Mean Corpuscular HGB CONC 32.1 g/dL (32.0-36.0); Mean Corpuscular Volume 96.5 fl (78.0-98.0); Mean Platelet Volume 8.9 fL (7.4-10.4); Platelet Count 408 10x3/uL (130-400); RBC Distribution Width 13.5 % (11.5-14.5); Red Blood Cell (RBC) Count 3.97 mill/uL (4.70-6.10); White Blood Cell (WBC) Count 11.5 10x3/uL (4.8-10.8)
[2023-08-05 07:39] LABS: Anion Gap 12 mmol/L (10-20); BUN (Urea Nitrogen) 18 mg/dL (8.4-25.7); Calc. Creatinine Clearance 76 mL/min (70-130); Calcium 8.8 mg/dL (7.8-10.44); Carbon Dioxide 27 mmol/L (23-31); Chloride 104 mmol/L (98-107); Estimated GFR 92; Glucose 99 mg/dL (83-110); Potassium 3.6 mmol/L (3.5-5.1); Sodium 139 mmol/L (136-145)
[2023-08-05] MEDS ORDERED: predniSONE 20 MG TAB PO SCH (08:00)
[2023-08-05] MEDS: rOPINIRole HCl 2 MG TAB PO SCH ×2 (09:07→21:27)
[2023-08-05] MEDS: Famotidine 20 MG TAB PO SCH ×2 (09:07→21:27)
[2023-08-05] MEDS: Polyethylene Glycol 3350 17 GM Packet PO SCH (09:07)
[2023-08-05] MEDS: Enoxaparin 40 MG (0.4 mL) SYRINGE SC SCH (09:07)
[2023-08-05] MEDS: Fluticasone Propionate Nasal Spray 16 gm Bottle NASAL SCH ×2 (09:08→21:27)
[2023-08-05] MEDS: methylPREDNISolone Sod Succ 40 MG VIAL IVP SCH (09:08)
[2023-08-05] MEDS: Oxymetazoline HCl 0.05% (30 ML BOT) NS SCH ×2 (09:08→21:27)
[2023-08-05] MEDS: Amlodipine 10 MG TAB PO SCH (09:08)
[2023-08-05] MEDS: Docusate 100 MG CAP PO SCH (09:08)
[2023-08-05] MEDS ORDERED: Iopamidol-370 76% 500 ML MDV (1 ML CHARGE) ONE (11:14)
[2023-08-05] MEDS: Venlafaxine XR 37.5 MG CAP PO SCH (21:26)
[2023-08-05] MEDS: QUEtiapine 25 MG TAB PO SCH (21:27)
[2023-08-05] MEDS: Acetaminophen 325 MG TAB PO PRN (22:38)
[2023-08-06] MEDS: Ipratropium/Albuterol 3 ML NEB NEB SCH ×5 (02:40→19:18)
[2023-08-06] MEDS: Mometasone 100 MCG/Formoterol 5 MCG 120 PUFF INHALER INH SCH ×2 (08:16→19:21)
[2023-08-06 09:01] LABS: #Monocytes 1.3 thou/uL (0.11-0.59); #Neutrophils 9.7 thou/uL (1.40-6.50); %Basophils 0.2 % (0.0-1.0); %Eosinophils 0.1 % (0.0-10.0); %Monocytes 11.6 % (0.0-10.0); %Neutrophils 84.1 % (42.0-75.0); Hematocrit 39.9 % (42.0-52.0); Hemoglobin 12.8 g/dL (14.0-18.0); Mean Corpuscular HGB CONC 32.1 g/dL (32.0-36.0); Mean Corpuscular Hemoglobin 31.1 pg (27.0-31.0); Mean Corpuscular Volume 96.8 fl (78.0-98.0); Mean Platelet Volume 9.2 fL (7.4-10.4); Platelet Count 401 10x3/uL (130-400); RBC Distribution Width 13.5 % (11.5-14.5); Red Blood Cell (RBC) Count 4.12 mill/uL (4.70-6.10); White Blood Cell (WBC) Count 11.5 10x3/uL (4.8-10.8)
[2023-08-06] MEDS: Amlodipine 10 MG TAB PO SCH (09:06)
[2023-08-06] MEDS: Docusate 100 MG CAP PO SCH (09:06)
[2023-08-06] MEDS: Famotidine 20 MG TAB PO SCH ×2 (09:06→21:43)
[2023-08-06] MEDS: Fluticasone Propionate Nasal Spray 16 gm Bottle NASAL SCH ×2 (09:07→21:43)
[2023-08-06] MEDS: rOPINIRole HCl 2 MG TAB PO SCH ×2 (09:07→21:43)
[2023-08-06] MEDS: methylPREDNISolone Sod Succ 40 MG VIAL IVP SCH (09:07)
[2023-08-06] MEDS: Enoxaparin 40 MG (0.4 mL) SYRINGE SC SCH (09:07)
[2023-08-06] MEDS: Polyethylene Glycol 3350 17 GM Packet PO SCH (09:08)
[2023-08-06] MEDS: Oxymetazoline HCl 0.05% (30 ML BOT) NS SCH ×2 (09:08→21:43)
[2023-08-06 09:12] LABS: Anion Gap 13 mmol/L (10-20); BUN (Urea Nitrogen) 15 mg/dL (8.4-25.7); Calc. Creatinine Clearance 76 mL/min (70-130); Calcium 8.9 mg/dL (7.8-10.44); Carbon Dioxide 29 mmol/L (23-31); Chloride 100 mmol/L (98-107); Estimated GFR 92; Glucose 100 mg/dL (83-110); Potassium 3.8 mmol/L (3.5-5.1); Sodium 138 mmol/L (136-145)
[2023-08-06] MEDS: QUEtiapine 25 MG TAB PO SCH (21:43)
[2023-08-06] MEDS: Venlafaxine XR 37.5 MG CAP PO SCH (21:43)
[2023-08-07] MEDS: Ipratropium/Albuterol 3 ML NEB NEB SCH ×7 (00:31→23:29)
[2023-08-07] MEDS: Acetaminophen 325 MG TAB PO PRN ×2 (01:01→06:20)
[2023-08-07] MEDS ORDERED: Vancomycin (BATCH) 1.25 GM in Premix 1 BAG IVPB SCH ×2 (03:15→03:30)
[2023-08-07] MEDS ORDERED: Piperacillin/Tazobactam 3.375 GM in Sodium Chloride 0.9% 100 ML IVPB SCH ×2 (04:00→08:00)
[2023-08-07 06:45] LABS: #Monocytes 1.4 thou/uL (0.11-0.59); #Neutrophils 8.1 thou/uL (1.40-6.50); %Basophils 0.1 % (0.0-1.0); %Lymphocytes 3.7 % (21.0-51.0); %Monocytes 13.8 % (0.0-10.0); %Neutrophils 81.5 % (42.0-75.0); Hematocrit 39.5 % (42.0-52.0); Hemoglobin 12.7 g/dL (14.0-18.0); Mean Corpuscular HGB CONC 32.2 g/dL (32.0-36.0); Mean Corpuscular Hemoglobin 31.4 pg (27.0-31.0); Mean Corpuscular Volume 97.8 fl (78.0-98.0); Mean Platelet Volume 8.7 fL (7.4-10.4); Platelet Count 378 10x3/uL (130-400); RBC Distribution Width 13.6 % (11.5-14.5); Red Blood Cell (RBC) Count 4.04 mill/uL (4.70-6.10); White Blood Cell (WBC) Count 9.9 10x3/uL (4.8-10.8)
[2023-08-07 06:57] LABS: Lactic Acid 0.7 mmol/L (0.5-2.2)
[2023-08-07 07:04] LABS: Bilirubin Negative (Negative); Blood, Urine Negative (Negative); Glucose, Urine (Dipstick) Negative (Negative); Ketone, Urine Negative (Negative); Leukocyte Negative (Negative); Nitrite Negative (Negative); Protein, Urine (Dipstick) Negative (Neg-Trace); Specific Gravity, Urine 1.015 (1.005-1.030)
[2023-08-07 07:07] LABS: ALT (SGPT) 24 U/L (8-55); AST (SGOT) 25 U/L (5-34); Albumin 3.3 g/dL (3.4-4.8); Alkaline Phosphatase 60 U/L (40-110); Anion Gap 10 mmol/L (10-20); BUN (Urea Nitrogen) 19 mg/dL (8.4-25.7); Bilirubin, Total 0.5 mg/dL (0.2-1.2); Calc. Creatinine Clearance 63 mL/min (70-130); Carbon Dioxide 31 mmol/L (23-31); Chloride 98 mmol/L (98-107); Estimated GFR 91; Globulin 3.1 g/dL (2.4-3.5); Glucose 91 mg/dL (83-110); Protein, Total 6.4 g/dL (5.8-8.1); Sodium 135 mmol/L (136-145)
[2023-08-07] MEDS: Mometasone 100 MCG/Formoterol 5 MCG 120 PUFF INHALER INH SCH ×2 (07:07→18:44)
[2023-08-07 07:18] LABS: Clarity Clear (Clear)
[2023-08-07 07:20] LABS: Bacteria/HPF None Seen HPF (None Seen); RBC/HPF 0-3 HPF (0-3); Squamous Epithelial 0-3 HPF (0-3); WBC/HPF 0-3 HPF (0-3)
[2023-08-07] MEDS: Enoxaparin 40 MG (0.4 mL) SYRINGE SC SCH (08:50)
[2023-08-07] MEDS: rOPINIRole HCl 2 MG TAB PO SCH ×2 (08:51→21:07)
[2023-08-07] MEDS: methylPREDNISolone Sod Succ 40 MG VIAL IVP SCH (08:51)
[2023-08-07] MEDS: Amlodipine 10 MG TAB PO SCH (08:51)
[2023-08-07] MEDS: Famotidine 20 MG TAB PO SCH ×2 (08:51→21:07)
[2023-08-07] MEDS: Docusate 100 MG CAP PO SCH (08:51)
[2023-08-07] MEDS: Fluticasone Propionate Nasal Spray 16 gm Bottle NASAL SCH ×2 (09:09→21:07)
[2023-08-07] MEDS: Oxymetazoline HCl 0.05% (30 ML BOT) NS SCH ×2 (09:10→21:07)
[2023-08-07] MEDS: Polyethylene Glycol 3350 17 GM Packet PO SCH (09:10)
[2023-08-07 10:21] LABS: SARS-CoV-2 NAA Rapid Test Not Detected (NotDetected)
[2023-08-07] MEDS: Vancomycin 1 GM in Premix 1 BAG IVPB SCH (15:03)
[2023-08-07] MEDS: Piperacillin/Tazobactam 3.375 GM in Sodium Chloride 0.9% 100 ML IVPB SCH (17:32)
[2023-08-07] MEDS: QUEtiapine 25 MG TAB PO SCH (21:07)
[2023-08-07] MEDS: Venlafaxine XR 37.5 MG CAP PO SCH (21:07)
[2023-08-08] MEDS: Piperacillin/Tazobactam 3.375 GM in Sodium Chloride 0.9% 100 ML IVPB SCH ×4 (00:45→16:14)
[2023-08-08] MEDS: Ipratropium/Albuterol 3 ML NEB NEB SCH ×6 (03:08→23:25)
[2023-08-08] MEDS: Vancomycin 1 GM in Premix 1 BAG IVPB SCH ×3 (03:48→04:09)
[2023-08-08] MEDS: Mometasone 100 MCG/Formoterol 5 MCG 120 PUFF INHALER INH SCH ×2 (07:20→22:20)
[2023-08-08 07:28] LABS: #Neutrophils 6.2 thou/uL (1.40-6.50); %Basophils 0.1 % (0.0-1.0); %Lymphocytes 5.9 % (21.0-51.0); %Monocytes 12.9 % (0.0-10.0); %Neutrophils 80.3 % (42.0-75.0); Hematocrit 38.9 % (42.0-52.0); Hemoglobin 12.4 g/dL (14.0-18.0); Mean Corpuscular HGB CONC 31.9 g/dL (32.0-36.0); Mean Corpuscular Hemoglobin 30.8 pg (27.0-31.0); Mean Corpuscular Volume 96.5 fl (78.0-98.0); Mean Platelet Volume 8.9 fL (7.4-10.4); Platelet Count 383 10x3/uL (130-400); RBC Distribution Width 13.6 % (11.5-14.5); Red Blood Cell (RBC) Count 4.03 mill/uL (4.70-6.10); White Blood Cell (WBC) Count 7.7 10x3/uL (4.8-10.8)
[2023-08-08] MEDS: Enoxaparin 40 MG (0.4 mL) SYRINGE SC SCH (07:49)
[2023-08-08] MEDS: Polyethylene Glycol 3350 17 GM Packet PO SCH (07:49)
[2023-08-08 07:50] LABS: ALT (SGPT) 24 U/L (8-55); AST (SGOT) 25 U/L (5-34); Albumin 2.9 g/dL (3.4-4.8); Alkaline Phosphatase 49 U/L (40-110); Anion Gap 11 mmol/L (10-20); BUN (Urea Nitrogen) 18 mg/dL (8.4-25.7); Bilirubin, Direct 0.2 mg/dL (0.1-0.3); Bilirubin, Total 0.4 mg/dL (0.2-1.2); Calc. Creatinine Clearance 66 mL/min (70-130); Calcium 8.7 mg/dL (7.8-10.44); Carbon Dioxide 31 mmol/L (23-31); Chloride 98 mmol/L (98-107); Estimated GFR 91; Glucose 115 mg/dL (83-110); Magnesium 2.1 mg/dL (1.6-2.6); Potassium 3.6 mmol/L (3.5-5.1); Protein, Total 5.8 g/dL (5.8-8.1); Sodium 136 mmol/L (136-145)
[2023-08-08] MEDS: Famotidine 20 MG TAB PO SCH ×2 (07:50→20:31)
[2023-08-08] MEDS: Amlodipine 10 MG TAB PO SCH (07:50)
[2023-08-08] MEDS: Docusate 100 MG CAP PO SCH (07:50)
[2023-08-08] MEDS: Oxymetazoline HCl 0.05% (30 ML BOT) NS SCH ×2 (07:51→20:31)
[2023-08-08] MEDS: methylPREDNISolone Sod Succ 40 MG VIAL IVP SCH (07:51)
[2023-08-08] MEDS: Fluticasone Propionate Nasal Spray 16 gm Bottle NASAL SCH ×2 (07:51→20:32)
[2023-08-08] MEDS: rOPINIRole HCl 2 MG TAB PO SCH ×2 (07:51→20:31)
[2023-08-08] MEDS: QUEtiapine 25 MG TAB PO SCH (20:31)
[2023-08-08] MEDS: Venlafaxine XR 37.5 MG CAP PO SCH (20:31)
[2023-08-09] MEDS: Piperacillin/Tazobactam 3.375 GM in Sodium Chloride 0.9% 100 ML IVPB SCH ×5 (00:34→23:35)
[2023-08-09] MEDS: Ipratropium/Albuterol 3 ML NEB NEB SCH ×6 (03:43→23:34)
[2023-08-09 06:33] LABS: #Monocytes 0.8 thou/uL (0.11-0.59); #Neutrophils 5.7 thou/uL (1.40-6.50); %Basophils 0.1 % (0.0-1.0); %Lymphocytes 8.4 % (21.0-51.0); %Monocytes 10.5 % (0.0-10.0); %Neutrophils 80.4 % (42.0-75.0); Hematocrit 37.3 % (42.0-52.0); Hemoglobin 11.6 g/dL (14.0-18.0); Mean Corpuscular HGB CONC 31.1 g/dL (32.0-36.0); Mean Corpuscular Hemoglobin 30.9 pg (27.0-31.0); Mean Corpuscular Volume 99.2 fl (78.0-98.0); Mean Platelet Volume 8.7 fL (7.4-10.4); Platelet Count 366 10x3/uL (130-400); RBC Distribution Width 13.6 % (11.5-14.5); Red Blood Cell (RBC) Count 3.76 mill/uL (4.70-6.10); White Blood Cell (WBC) Count 7.1 10x3/uL (4.8-10.8)
[2023-08-09 06:57] LABS: Anion Gap 9 mmol/L (10-20); BUN (Urea Nitrogen) 19 mg/dL (8.4-25.7); Calc. Creatinine Clearance 65 mL/min (70-130); Calcium 8.5 mg/dL (7.8-10.44); Carbon Dioxide 30 mmol/L (23-31); Chloride 101 mmol/L (98-107); Estimated GFR 90; Glucose 112 mg/dL (83-110); Magnesium 1.9 mg/dL (1.6-2.6); Potassium 3.7 mmol/L (3.5-5.1); Sodium 136 mmol/L (136-145)
[2023-08-09] MEDS: Mometasone 100 MCG/Formoterol 5 MCG 120 PUFF INHALER INH SCH ×2 (07:14→20:03)
[2023-08-09] MEDS: Amlodipine 10 MG TAB PO SCH (08:36)
[2023-08-09] MEDS: Docusate 100 MG CAP PO SCH (08:37)
[2023-08-09] MEDS: rOPINIRole HCl 2 MG TAB PO SCH ×2 (08:37→20:25)
[2023-08-09] MEDS: Polyethylene Glycol 3350 17 GM Packet PO SCH (08:37)
[2023-08-09] MEDS: methylPREDNISolone Sod Succ 40 MG VIAL IVP SCH (08:37)
[2023-08-09] MEDS: Famotidine 20 MG TAB PO SCH ×2 (08:37→20:25)
[2023-08-09] MEDS: Enoxaparin 40 MG (0.4 mL) SYRINGE SC SCH (08:37)
[2023-08-09] MEDS: Fluticasone Propionate Nasal Spray 16 gm Bottle NASAL SCH ×2 (08:38→20:26)
[2023-08-09] MEDS: Oxymetazoline HCl 0.05% (30 ML BOT) NS SCH ×2 (08:38→20:27)
[2023-08-09] MEDS ORDERED: Piperacillin/Tazobactam 3.375 GM in Sodium Chloride 0.9% 100 ML IVPB SCH (12:30)
[2023-08-09] MEDS: Venlafaxine XR 37.5 MG CAP PO SCH (20:26)
[2023-08-09] MEDS: QUEtiapine 25 MG TAB PO SCH (20:26)
[2023-08-10] MEDS: Ipratropium/Albuterol 3 ML NEB NEB SCH ×6 (02:55→22:37)
[2023-08-10 04:28] LABS: #Monocytes 0.7 thou/uL (0.11-0.59); #Neutrophils 5.7 thou/uL (1.40-6.50); %Basophils 0.1 % (0.0-1.0); %Lymphocytes 9.8 % (21.0-51.0); %Monocytes 10.1 % (0.0-10.0); %Neutrophils 79.4 % (42.0-75.0); Hemoglobin 11.4 g/dL (14.0-18.0); Mean Corpuscular HGB CONC 31.7 g/dL (32.0-36.0); Mean Corpuscular Hemoglobin 30.7 pg (27.0-31.0); Platelet Count 362 10x3/uL (130-400); RBC Distribution Width 13.5 % (11.5-14.5); Red Blood Cell (RBC) Count 3.71 mill/uL (4.70-6.10); White Blood Cell (WBC) Count 7.1 10x3/uL (4.8-10.8)
[2023-08-10 04:52] LABS: Anion Gap 11 mmol/L (10-20); BUN (Urea Nitrogen) 17 mg/dL (8.4-25.7); Calc. Creatinine Clearance 65 mL/min (70-130); Calcium 8.5 mg/dL (7.8-10.44); Carbon Dioxide 30 mmol/L (23-31); Chloride 100 mmol/L (98-107); Estimated GFR 90; Glucose 87 mg/dL (83-110); Magnesium 1.9 mg/dL (1.6-2.6); Potassium 3.6 mmol/L (3.5-5.1); Sodium 137 mmol/L (136-145)
[2023-08-10] MEDS: Piperacillin/Tazobactam 3.375 GM in Sodium Chloride 0.9% 100 ML IVPB SCH (09:19)
[2023-08-10] MEDS: Amlodipine 10 MG TAB PO SCH (09:20)
[2023-08-10] MEDS: predniSONE 5 MG TAB PO SCH (09:20)
[2023-08-10] MEDS: rOPINIRole HCl 2 MG TAB PO SCH ×2 (09:20→20:25)
[2023-08-10] MEDS: Famotidine 20 MG TAB PO SCH ×2 (09:20→20:25)
[2023-08-10] MEDS: Enoxaparin 40 MG (0.4 mL) SYRINGE SC SCH (09:22)
[2023-08-10] MEDS: Docusate 100 MG CAP PO SCH (09:22)
[2023-08-10] MEDS: Polyethylene Glycol 3350 17 GM Packet PO SCH (09:23)
[2023-08-10] MEDS: Fluticasone Propionate Nasal Spray 16 gm Bottle NASAL SCH ×2 (09:23→22:48)
[2023-08-10] MEDS: Oxymetazoline HCl 0.05% (30 ML BOT) NS SCH ×2 (09:23→22:48)
[2023-08-10] MEDS ORDERED: QUEtiapine 25 MG TAB PO SCH (16:00)
[2023-08-10] MEDS: QUEtiapine 25 MG TAB PO SCH (20:04)
[2023-08-10] MEDS: Amoxicillin/Potassium Clav 875 MG TAB PO SCH ×2 (20:25→22:41)
[2023-08-10] MEDS: Venlafaxine XR 37.5 MG CAP PO SCH (20:25)
[2023-08-11] MEDS: Ipratropium/Albuterol 3 ML NEB NEB SCH ×6 (02:26→23:07)
[2023-08-11 07:36] LABS: #Monocytes 0.5 thou/uL (0.11-0.59); #Neutrophils 5.7 thou/uL (1.40-6.50); %Monocytes 6.9 % (0.0-10.0); %Neutrophils 84.4 % (42.0-75.0); Hematocrit 35.1 % (42.0-52.0); Hemoglobin 11.1 g/dL (14.0-18.0); Mean Corpuscular HGB CONC 31.6 g/dL (32.0-36.0); Mean Corpuscular Hemoglobin 30.9 pg (27.0-31.0); Mean Corpuscular Volume 97.8 fl (78.0-98.0); Mean Platelet Volume 9.2 fL (7.4-10.4); Platelet Count 316 10x3/uL (130-400); RBC Distribution Width 13.5 % (11.5-14.5); Red Blood Cell (RBC) Count 3.59 mill/uL (4.70-6.10); White Blood Cell (WBC) Count 6.8 10x3/uL (4.8-10.8)
[2023-08-11 08:11] LABS: Anion Gap 10 mmol/L (10-20); BUN (Urea Nitrogen) 15 mg/dL (8.4-25.7); Calc. Creatinine Clearance 75 mL/min (70-130); Calcium 8.4 mg/dL (7.8-10.44); Carbon Dioxide 29 mmol/L (23-31); Chloride 102 mmol/L (98-107); Estimated GFR 94; Glucose 103 mg/dL (83-110); Magnesium 1.9 mg/dL (1.6-2.6); Potassium 3.5 mmol/L (3.5-5.1); Sodium 137 mmol/L (136-145)
[2023-08-11] MEDS ORDERED: Nitroglycerin 0.4 MG TAB (25 Tab Bottle) SL PRN (08:53)
[2023-08-11] MEDS: predniSONE 5 MG TAB PO SCH (09:33)
[2023-08-11] MEDS: QUEtiapine 25 MG TAB PO SCH ×3 (09:33→22:07)
[2023-08-11] MEDS: rOPINIRole HCl 2 MG TAB PO SCH ×2 (09:33→22:07)
[2023-08-11] MEDS: Docusate 100 MG CAP PO SCH (09:34)
[2023-08-11] MEDS: Enoxaparin 40 MG (0.4 mL) SYRINGE SC SCH (09:34)
[2023-08-11] MEDS: Amoxicillin/Potassium Clav 875 MG TAB PO SCH ×2 (09:34→22:06)
[2023-08-11] MEDS: Famotidine 20 MG TAB PO SCH ×2 (09:34→22:07)
[2023-08-11] MEDS: Amlodipine 10 MG TAB PO SCH (09:34)
[2023-08-11] MEDS: Oxymetazoline HCl 0.05% (30 ML BOT) NS SCH ×2 (09:35→22:07)
[2023-08-11] MEDS: Fluticasone Propionate Nasal Spray 16 gm Bottle NASAL SCH ×2 (09:35→22:07)
[2023-08-11] MEDS: Polyethylene Glycol 3350 17 GM Packet PO SCH (09:52)
[2023-08-11] MEDS: Haloperidol Lactate 5 MG/ML VIAL IM SCH ×2 (14:44→21:45)
[2023-08-11] MEDS: Venlafaxine XR 37.5 MG CAP PO SCH (22:07)
[2023-08-12] MEDS: Haloperidol Lactate 5 MG/ML VIAL IM SCH ×4 (01:59→18:39)
[2023-08-12] MEDS: Ipratropium/Albuterol 3 ML NEB NEB SCH ×6 (02:51→22:45)
[2023-08-12] MEDS: predniSONE 5 MG TAB PO SCH (09:50)
[2023-08-12] MEDS: Docusate 100 MG CAP PO SCH (09:50)
[2023-08-12] MEDS: Famotidine 20 MG TAB PO SCH ×2 (09:50→19:47)
[2023-08-12] MEDS: Oxymetazoline HCl 0.05% (30 ML BOT) NS SCH ×2 (09:50→19:48)
[2023-08-12] MEDS: Amlodipine 10 MG TAB PO SCH (09:50)
[2023-08-12] MEDS: Amoxicillin/Potassium Clav 875 MG TAB PO SCH ×2 (09:50→19:48)
[2023-08-12] MEDS: Enoxaparin 40 MG (0.4 mL) SYRINGE SC SCH (09:50)
[2023-08-12] MEDS: Fluticasone Propionate Nasal Spray 16 gm Bottle NASAL SCH ×2 (09:50→19:48)
[2023-08-12] MEDS: Polyethylene Glycol 3350 17 GM Packet PO SCH (09:51)
[2023-08-12] MEDS: rOPINIRole HCl 2 MG TAB PO SCH ×2 (09:51→19:48)
[2023-08-12] MEDS: QUEtiapine 25 MG TAB PO SCH ×3 (09:51→19:48)
[2023-08-12 13:38] LABS: #Monocytes 0.4 thou/uL (0.11-0.59); #Neutrophils 5.9 thou/uL (1.40-6.50); %Lymphocytes 7.1 % (21.0-51.0); %Monocytes 5.8 % (0.0-10.0); %Neutrophils 86.7 % (42.0-75.0); Hematocrit 37.4 % (42.0-52.0); Hemoglobin 11.7 g/dL (14.0-18.0); Mean Corpuscular HGB CONC 31.3 g/dL (32.0-36.0); Mean Corpuscular Hemoglobin 30.7 pg (27.0-31.0); Mean Corpuscular Volume 98.2 fl (78.0-98.0); Mean Platelet Volume 8.9 fL (7.4-10.4); Platelet Count 333 10x3/uL (130-400); RBC Distribution Width 13.6 % (11.5-14.5); Red Blood Cell (RBC) Count 3.81 mill/uL (4.70-6.10); White Blood Cell (WBC) Count 6.9 10x3/uL (4.8-10.8)
[2023-08-12 14:03] LABS: Anion Gap 14 mmol/L (10-20); BUN (Urea Nitrogen) 15 mg/dL (8.4-25.7); Calc. Creatinine Clearance 73 mL/min (70-130); Calcium 8.6 mg/dL (7.8-10.44); Carbon Dioxide 27 mmol/L (23-31); Chloride 102 mmol/L (98-107); Estimated GFR 94; Glucose 118 mg/dL (83-110); Magnesium 2.1 mg/dL (1.6-2.6); Potassium 3.7 mmol/L (3.5-5.1); Sodium 139 mmol/L (136-145)
[2023-08-12] MEDS: Venlafaxine XR 37.5 MG CAP PO SCH (19:48)
[2023-08-13] MEDS: Ipratropium/Albuterol 3 ML NEB NEB SCH ×6 (02:23→23:26)
[2023-08-13] MEDS: Haloperidol Lactate 5 MG/ML VIAL IM SCH ×3 (03:04→14:41)
[2023-08-13 09:33] LABS: #Monocytes 0.5 thou/uL (0.11-0.59); #Neutrophils 5.3 thou/uL (1.40-6.50); %Basophils 0.2 % (0.0-1.0); %Eosinophils 0.2 % (0.0-10.0); %Lymphocytes 10.2 % (21.0-51.0); %Monocytes 7.1 % (0.0-10.0); %Neutrophils 81.7 % (42.0-75.0); Hematocrit 36.6 % (42.0-52.0); Hemoglobin 11.5 g/dL (14.0-18.0); Mean Corpuscular HGB CONC 31.4 g/dL (32.0-36.0); Mean Corpuscular Hemoglobin 30.7 pg (27.0-31.0); Mean Corpuscular Volume 97.6 fl (78.0-98.0); Platelet Count 325 10x3/uL (130-400); RBC Distribution Width 13.6 % (11.5-14.5); Red Blood Cell (RBC) Count 3.75 mill/uL (4.70-6.10); White Blood Cell (WBC) Count 6.5 10x3/uL (4.8-10.8)
[2023-08-13] MEDS: rOPINIRole HCl 2 MG TAB PO SCH ×2 (10:10→20:29)
[2023-08-13] MEDS: predniSONE 5 MG TAB PO SCH (10:10)
[2023-08-13] MEDS: Amlodipine 10 MG TAB PO SCH (10:15)
[2023-08-13] MEDS: Enoxaparin 40 MG (0.4 mL) SYRINGE SC SCH (10:15)
[2023-08-13] MEDS: Docusate 100 MG CAP PO SCH (10:15)
[2023-08-13] MEDS: Amoxicillin/Potassium Clav 875 MG TAB PO SCH ×2 (10:15→20:28)
[2023-08-13] MEDS: Famotidine 20 MG TAB PO SCH ×2 (10:16→20:28)
[2023-08-13] MEDS: Oxymetazoline HCl 0.05% (30 ML BOT) NS SCH ×2 (10:16→20:35)
[2023-08-13] MEDS: QUEtiapine 25 MG TAB PO SCH ×2 (10:16→20:28)
[2023-08-13] MEDS: Polyethylene Glycol 3350 17 GM Packet PO SCH (10:16)
[2023-08-13] MEDS: Fluticasone Propionate Nasal Spray 16 gm Bottle NASAL SCH ×2 (10:16→20:35)
[2023-08-13 15:16] LABS: Anion Gap 11 mmol/L (10-20); BUN (Urea Nitrogen) 14 mg/dL (8.4-25.7); Calc. Creatinine Clearance 75 mL/min (70-130); Calcium 8.6 mg/dL (7.8-10.44); Carbon Dioxide 29 mmol/L (23-31); Chloride 103 mmol/L (98-107); Estimated GFR 94; Glucose 126 mg/dL (83-110); Potassium 3.4 mmol/L (3.5-5.1); Sodium 140 mmol/L (136-145)
[2023-08-13] MEDS: Haloperidol 5 MG TAB PO SCH ×2 (18:31→23:04)
[2023-08-13] MEDS: Venlafaxine XR 37.5 MG CAP PO SCH (20:29)
[2023-08-13] MEDS: Benztropine 1 MG TAB PO SCH (20:29)
[2023-08-14] MEDS: Ipratropium/Albuterol 3 ML NEB NEB SCH ×6 (03:02→22:23)
[2023-08-14] MEDS: Haloperidol 5 MG TAB PO SCH ×4 (05:57→23:30)
[2023-08-14] MEDS: Amlodipine 10 MG TAB PO SCH (09:46)
[2023-08-14] MEDS: Enoxaparin 40 MG (0.4 mL) SYRINGE SC SCH (09:46)
[2023-08-14] MEDS: Benztropine 1 MG TAB PO SCH ×2 (09:46→20:50)
[2023-08-14] MEDS: Docusate 100 MG CAP PO SCH (09:46)
[2023-08-14] MEDS: predniSONE 5 MG TAB PO SCH (09:46)
[2023-08-14] MEDS: Amoxicillin/Potassium Clav 875 MG TAB PO SCH ×2 (09:46→20:50)
[2023-08-14] MEDS: rOPINIRole HCl 2 MG TAB PO SCH ×2 (09:46→20:49)
[2023-08-14] MEDS: Famotidine 20 MG TAB PO SCH ×2 (09:47→20:50)
[2023-08-14] MEDS: Oxymetazoline HCl 0.05% (30 ML BOT) NS SCH ×2 (09:47→20:58)
[2023-08-14] MEDS: Fluticasone Propionate Nasal Spray 16 gm Bottle NASAL SCH ×2 (09:47→20:58)
[2023-08-14] MEDS: Polyethylene Glycol 3350 17 GM Packet PO SCH (09:47)
[2023-08-14] MEDS: QUEtiapine 25 MG TAB PO SCH (20:50)
[2023-08-14] MEDS: Venlafaxine XR 37.5 MG CAP PO SCH (20:50)
[2023-08-15] MEDS: Ipratropium/Albuterol 3 ML NEB NEB SCH ×6 (02:24→23:00)
[2023-08-15] MEDS: Haloperidol 5 MG TAB PO SCH ×3 (05:09→17:32)
[2023-08-15] MEDS: Enoxaparin 40 MG (0.4 mL) SYRINGE SC SCH (07:52)
[2023-08-15] MEDS: Benztropine 1 MG TAB PO SCH ×2 (07:52→21:29)
[2023-08-15] MEDS: Docusate 100 MG CAP PO SCH (07:52)
[2023-08-15] MEDS: Amlodipine 10 MG TAB PO SCH (07:52)
[2023-08-15] MEDS: Famotidine 20 MG TAB PO SCH ×2 (07:53→21:30)
[2023-08-15] MEDS: Amoxicillin/Potassium Clav 875 MG TAB PO SCH ×2 (07:53→21:29)
[2023-08-15] MEDS: predniSONE 5 MG TAB PO SCH (07:53)
[2023-08-15] MEDS: rOPINIRole HCl 2 MG TAB PO SCH ×2 (08:09→22:07)
[2023-08-15] MEDS: Polyethylene Glycol 3350 17 GM Packet PO SCH (08:09)
[2023-08-15] MEDS: Oxymetazoline HCl 0.05% (30 ML BOT) NS SCH ×2 (08:10→21:30)
[2023-08-15] MEDS: Fluticasone Propionate Nasal Spray 16 gm Bottle NASAL SCH ×2 (08:10→21:30)
[2023-08-15] MEDS ORDERED: Haloperidol Lactate 5 MG/ML VIAL SLOW IVP SCH (18:15)
[2023-08-15] MEDS: Haloperidol Lactate 5 MG/ML VIAL IM SCH (21:24)
[2023-08-15] MEDS: Venlafaxine XR 37.5 MG CAP PO SCH (22:07)
[2023-08-15] MEDS: QUEtiapine 25 MG TAB PO SCH (22:07)
[2023-08-16] MEDS: Haloperidol Lactate 5 MG/ML VIAL IM SCH ×5 (01:17→23:42)
[2023-08-16] MEDS: Ipratropium/Albuterol 3 ML NEB NEB SCH ×6 (02:27→21:52)
[2023-08-16] MEDS: Docusate 100 MG CAP PO SCH (08:13)
[2023-08-16] MEDS: Amoxicillin/Potassium Clav 875 MG TAB PO SCH ×2 (08:13→20:09)
[2023-08-16] MEDS: Enoxaparin 40 MG (0.4 mL) SYRINGE SC SCH (08:14)
[2023-08-16] MEDS: Famotidine 20 MG TAB PO SCH ×2 (08:14→20:09)
[2023-08-16] MEDS: Amlodipine 10 MG TAB PO SCH (08:14)
[2023-08-16] MEDS: rOPINIRole HCl 2 MG TAB PO SCH ×2 (08:14→20:08)
[2023-08-16] MEDS: Benztropine 1 MG TAB PO SCH ×2 (08:14→20:09)
[2023-08-16] MEDS: Polyethylene Glycol 3350 17 GM Packet PO SCH (08:14)
[2023-08-16] MEDS: predniSONE 5 MG TAB PO SCH (08:14)
[2023-08-16] MEDS: Fluticasone Propionate Nasal Spray 16 gm Bottle NASAL SCH ×2 (08:14→20:10)
[2023-08-16] MEDS: Oxymetazoline HCl 0.05% (30 ML BOT) NS SCH ×2 (08:15→20:10)
[2023-08-16] MEDS: Venlafaxine XR 37.5 MG CAP PO SCH (20:08)
[2023-08-16] MEDS: QUEtiapine 25 MG TAB PO SCH (20:10)
[2023-08-17] MEDS: Ipratropium/Albuterol 3 ML NEB NEB SCH ×6 (02:02→21:46)
[2023-08-17] MEDS: Haloperidol Lactate 5 MG/ML VIAL IM SCH (05:26)
[2023-08-17] MEDS: Benztropine 1 MG TAB PO SCH (08:23)
[2023-08-17] MEDS: Amoxicillin/Potassium Clav 875 MG TAB PO SCH (08:23)
[2023-08-17] MEDS: Amlodipine 10 MG TAB PO SCH (08:23)
[2023-08-17] MEDS: Famotidine 20 MG TAB PO SCH ×2 (08:24→20:44)
[2023-08-17] MEDS: Fluticasone Propionate Nasal Spray 16 gm Bottle NASAL SCH ×2 (08:24→20:44)
[2023-08-17] MEDS: Polyethylene Glycol 3350 17 GM Packet PO SCH (08:24)
[2023-08-17] MEDS: Oxymetazoline HCl 0.05% (30 ML BOT) NS SCH ×2 (08:24→20:44)
[2023-08-17] MEDS: Enoxaparin 40 MG (0.4 mL) SYRINGE SC SCH (08:24)
[2023-08-17] MEDS: rOPINIRole HCl 2 MG TAB PO SCH ×2 (08:24→20:43)
[2023-08-17] MEDS: Docusate 100 MG CAP PO SCH (08:24)
[2023-08-17] MEDS: predniSONE 5 MG TAB PO SCH (08:24)
[2023-08-17] MEDS ORDERED: Lorazepam 2 MG/ML VIAL SLOW IVP PRN (10:17)
[2023-08-17] MEDS: Haloperidol 5 MG TAB PO SCH ×3 (12:33→20:44)
[2023-08-17] MEDS: Melatonin 3 MG TAB PO SCH (20:44)
[2023-08-18] MEDS: Ipratropium/Albuterol 3 ML NEB NEB SCH ×6 (02:12→22:38)
[2023-08-18] MEDS: Polyethylene Glycol 3350 17 GM Packet PO SCH (09:00)
[2023-08-18] MEDS: Famotidine 20 MG TAB PO SCH ×2 (09:22→19:27)
[2023-08-18] MEDS: Enoxaparin 40 MG (0.4 mL) SYRINGE SC SCH (09:22)
[2023-08-18] MEDS: Haloperidol 5 MG TAB PO SCH ×5 (09:22→19:26)
[2023-08-18] MEDS: rOPINIRole HCl 2 MG TAB PO SCH ×2 (09:22→19:26)
[2023-08-18] MEDS: Amlodipine 10 MG TAB PO SCH (09:22)
[2023-08-18] MEDS: Fluticasone Propionate Nasal Spray 16 gm Bottle NASAL SCH ×2 (09:23→19:33)
[2023-08-18] MEDS: predniSONE 5 MG TAB PO SCH (09:23)
[2023-08-18] MEDS: Docusate 100 MG CAP PO SCH (09:23)
[2023-08-18] MEDS: Oxymetazoline HCl 0.05% (30 ML BOT) NS SCH ×2 (09:28→19:33)
[2023-08-18] MEDS: Melatonin 3 MG TAB PO SCH (19:26)
[2023-08-18] MEDS: Sodium Chloride 0.9% 1,000 ML IV SCH (19:27)
[2023-08-19] MEDS: Ipratropium/Albuterol 3 ML NEB NEB SCH ×6 (03:19→23:26)
[2023-08-19] MEDS: Haloperidol 5 MG TAB PO SCH ×3 (09:01→17:49)
[2023-08-19] MEDS: rOPINIRole HCl 2 MG TAB PO SCH ×2 (09:01→20:39)
[2023-08-19] MEDS: predniSONE 5 MG TAB PO SCH (09:01)
[2023-08-19] MEDS: Polyethylene Glycol 3350 17 GM Packet PO SCH (09:02)
[2023-08-19] MEDS: Enoxaparin 40 MG (0.4 mL) SYRINGE SC SCH (09:02)
[2023-08-19] MEDS: Docusate 100 MG CAP PO SCH (09:02)
[2023-08-19] MEDS: Oxymetazoline HCl 0.05% (30 ML BOT) NS SCH ×2 (09:02→20:39)
[2023-08-19] MEDS: Fluticasone Propionate Nasal Spray 16 gm Bottle NASAL SCH ×2 (09:02→20:39)
[2023-08-19] MEDS: Amlodipine 10 MG TAB PO SCH (09:02)
[2023-08-19] MEDS: Famotidine 20 MG TAB PO SCH ×2 (09:03→20:39)
[2023-08-19] MEDS: Sodium Chloride 0.9% 1,000 ML IV SCH (14:23)
[2023-08-19] MEDS: Melatonin 3 MG TAB PO SCH (20:39)
[2023-08-20] MEDS: Haloperidol 5 MG TAB PO SCH ×5 (02:07→20:00)
[2023-08-20] MEDS: Ipratropium/Albuterol 3 ML NEB NEB SCH ×5 (02:56→18:40)
[2023-08-20] MEDS: Amlodipine 10 MG TAB PO SCH (09:23)
[2023-08-20] MEDS: Docusate 100 MG CAP PO SCH (09:23)
[2023-08-20] MEDS: Enoxaparin 40 MG (0.4 mL) SYRINGE SC SCH (09:23)
[2023-08-20] MEDS: Polyethylene Glycol 3350 17 GM Packet PO SCH (09:23)
[2023-08-20] MEDS: Famotidine 20 MG TAB PO SCH ×2 (09:23→20:00)
[2023-08-20] MEDS: rOPINIRole HCl 2 MG TAB PO SCH ×2 (09:23→20:00)
[2023-08-20] MEDS: Oxymetazoline HCl 0.05% (30 ML BOT) NS SCH ×2 (09:40→20:00)
[2023-08-20] MEDS: Fluticasone Propionate Nasal Spray 16 gm Bottle NASAL SCH ×2 (09:41→20:00)
[2023-08-20] MEDS ORDERED: Lorazepam 2 MG/ML VIAL SLOW IVP PRN (12:23)
[2023-08-20] MEDS: Sodium Chloride 0.9% 1,000 ML IV SCH (13:04)
[2023-08-20] MEDS: Melatonin 3 MG TAB PO SCH (20:00)
[2023-08-21] MEDS: Ipratropium/Albuterol 3 ML NEB NEB SCH ×7 (00:32→23:04)
[2023-08-21] MEDS: Sodium Chloride 0.9% 1,000 ML IV SCH (09:00)
[2023-08-21] MEDS: rOPINIRole HCl 2 MG TAB PO SCH ×2 (09:01→20:29)
[2023-08-21] MEDS: Polyethylene Glycol 3350 17 GM Packet PO SCH (09:01)
[2023-08-21] MEDS: Enoxaparin 40 MG (0.4 mL) SYRINGE SC SCH (09:01)
[2023-08-21] MEDS: Famotidine 20 MG TAB PO SCH ×2 (09:01→20:30)
[2023-08-21] MEDS: Docusate 100 MG CAP PO SCH (09:01)
[2023-08-21] MEDS: Amlodipine 10 MG TAB PO SCH (09:01)
[2023-08-21] MEDS: Fluticasone Propionate Nasal Spray 16 gm Bottle NASAL SCH ×2 (09:02→20:30)
[2023-08-21] MEDS: Haloperidol 5 MG TAB PO SCH ×3 (09:02→20:30)
[2023-08-21] MEDS: Oxymetazoline HCl 0.05% (30 ML BOT) NS SCH ×2 (09:02→20:32)
[2023-08-21] MEDS: Melatonin 3 MG TAB PO SCH (20:30)
[2023-08-22] MEDS: Ipratropium/Albuterol 3 ML NEB NEB SCH ×6 (02:29→22:23)
[2023-08-22] MEDS: Sodium Chloride 0.9% 1,000 ML IV SCH ×2 (03:43→23:00)
[2023-08-22] MEDS: rOPINIRole HCl 2 MG TAB PO SCH ×2 (09:42→20:23)
[2023-08-22] MEDS: Famotidine 20 MG TAB PO SCH ×2 (09:42→20:24)
[2023-08-22] MEDS: Docusate 100 MG CAP PO SCH (09:43)
[2023-08-22] MEDS: Enoxaparin 40 MG (0.4 mL) SYRINGE SC SCH (09:43)
[2023-08-22] MEDS: Amlodipine 10 MG TAB PO SCH (09:43)
[2023-08-22] MEDS: Fluticasone Propionate Nasal Spray 16 gm Bottle NASAL SCH ×2 (09:44→20:23)
[2023-08-22] MEDS: Oxymetazoline HCl 0.05% (30 ML BOT) NS SCH ×2 (09:44→20:23)
[2023-08-22] MEDS: Polyethylene Glycol 3350 17 GM Packet PO SCH (09:44)
[2023-08-22] MEDS: Haloperidol 1 MG TAB PO SCH (09:45)
[2023-08-22] MEDS: Acetaminophen 325 MG TAB PO PRN (11:56)
[2023-08-22 14:20] VITALS: BP 134/60
[2023-08-22] MEDS: Melatonin 3 MG TAB PO SCH (20:23)
[2023-08-22] MEDS: Haloperidol 5 MG TAB PO SCH (20:23)
[2023-08-23] MEDS: Ipratropium/Albuterol 3 ML NEB NEB SCH ×3 (01:55→10:34)
[2023-08-23] MEDS: Famotidine 20 MG TAB PO SCH (08:33)
[2023-08-23] MEDS: Docusate 100 MG CAP PO SCH (08:33)
[2023-08-23] MEDS: Polyethylene Glycol 3350 17 GM Packet PO SCH (08:34)
[2023-08-23] MEDS: rOPINIRole HCl 2 MG TAB PO SCH (08:34)
[2023-08-23] MEDS: Haloperidol 1 MG TAB PO SCH (08:35)
[2023-08-23] MEDS: Amlodipine 10 MG TAB PO SCH (08:36)
[2023-08-23] MEDS: Oxymetazoline HCl 0.05% (30 ML BOT) NS SCH (08:37)
[2023-08-23] MEDS: Fluticasone Propionate Nasal Spray 16 gm Bottle NASAL SCH (08:37)
[2023-08-23] MEDS: Enoxaparin 40 MG (0.4 mL) SYRINGE SC SCH (08:37)
[2023-08-23 12:00] VITALS: TEMP 98
== END 2023-08-23 17:04 | disposition hospice, home (50) | DRG 177 ==
LOC: 2NO 20:29 → CCU 08-02 06:10 → T4-A 08-03 18:14 → IMCU/EMU 08-15 19:56
PROVIDERS: ADMIT Hospitalist; ATTEND Emergency Medicine
PROC: 5A0935A Assistance with Respiratory Ventilation, Less than 24 Consecutive Hours, High Flow/Velocity Cannula (ICD-10-PCS; principal; 2023-08-02)
PROC: 4A10X4Z Monitoring of Central Nervous Electrical Activity, External Approach (ICD-10-PCS; 2023-08-21)
DX: J69.0 Pneumonitis due to inhalation of food and vomit (principal); G92.8 Other toxic encephalopathy; J96.01 Acute respiratory failure with hypoxia; C79.51 Secondary malignant neoplasm of bone; F32.3 Major depressive disorder, single episode, severe with psychotic features; E87.1 Hypo-osmolality and hyponatremia; C78.7 Secondary malignant neoplasm of liver and intrahepatic bile duct; E72.20 Disorder of urea cycle metabolism, unspecified; I10 Essential (primary) hypertension; G25.81 Restless legs syndrome; C61 Malignant neoplasm of prostate; J42 Unspecified chronic bronchitis; R58 Hemorrhage, not elsewhere classified; F32.A Depression, unspecified; Z66 Do not resuscitate; Z11.52 Encounter for screening for COVID-19; Z88.7 Allergy status to serum and vaccine
CPT/HCPCS: 0241U; 36415; 36416; 70470; 71045; 71260; 74018; 74177; 78306; 80048; 80053; 80076; 81001; 82140; 83605; 83735; 83880; 84145; 85025; 87040; 87081; 94640; 95816; 95819; 97139; A9503; J0692; J1630; J1650; J2060; J2543; J2920; J3370; J3370-JW; J3490; J7050; J7512; J7620; Q9967; S0028